=== PATIENT | female | born 1965 | race Caucasian/White ===

== ENCOUNTER 2017-05-26 11:26 | Inpatient (IN) ==
--- NOTE | 2017-05-26 11:38 | Emergency Department Note ---
Disposition Clinical Impression: Hypokalemia, Hyperglycemia due to type 1 diabetes mellitus, Dehydration Acute renal failure Qualifiers: Acute renal failure type: unspecified Qualified Code(s): N17.9 - Acute kidney failure, unspecified Disposition: Admitted As Inpatient Condition: Fair General Adult HPI - General Chief complaint: ED Dizziness Stated complaint: high blood sugar/dizzy Time Seen by Provider: 05/26/17 11:34 Source: patient Mode of arrival: private vehicle Limitations: no limitations Nursing Notes Reviewed: Yes Vital Signs Reviewed: Yes - History of Present Illness HPI Narrative: Patient relates she has been feeling weak and dizzy for about 2-3 days. She rates she is now to the point where she is falling and dropping things because of her diffuse weakness. During this time her blood sugars have been reading high and she has been on her routine diet and insulin. She has had similar episodes to this in the past she states the last time was one year ago and is because her "electrolytes were out of whack", she had decreased kidney function and her blood sugar was controlled. She does report that she has been having some nausea and vomiting for about 2 days and with a decreased oral intake. She has had a decrease in urination without burping. She denies abdominal pain or diarrhea. She denies chest pain, cough or abnormal shortness of breath. She relates she has normal dyspnea on exertion. She denies any change in medicines were cranial exposures. She has not had recent antibiotic, travel or food borne concerns. Onset (ago): day(s) (3) Pain Scale: 4 Consistency: Worsening Improves with: nothing Worsens with: other (Activity) Associated symptoms: Reports: loss of appetite, malaise, nausea/vomiting, weakness. Denies: confusion, chest pain, cough, diaphoresis, fever/chills, headaches, rash, seizure, shortness of breath, syncope - Related Data Home Medications Medication Instructions Recorded Confirmed FLUoxetine HCl [Prozac] 40 mg PO DAILY 03/19/15 05/26/17 Insulin ASPART [NovoLOG] 100 unit SQ TIDWM 03/19/15 05/26/17 Buprenorphine HCl/Naloxone HCl 0.5 film SL QID 04/11/16 05/26/17 [Suboxone 8 mg-2 mg Sl Film] Cholecalciferol (Vitd3)/Vit K2 [D3 2,000 unit PO DAILY 04/11/16 05/26/17 + K2 Dots 1,000 Units Tab] Fenofibrate Nanocrystallized 145 mg PO DAILY 04/11/16 05/26/17 [Tricor] Gabapentin [Neurontin] 1 cap PO BID 04/11/16 05/26/17 Insulin Degludec [Tresiba 100 unit SQ QPM 04/11/16 05/26/17 Flextouch U-100] Metoprolol [Lopressor] 25 mg PO BID 04/11/16 05/26/17 metFORMIN [Glucophage] 500 mg PO BIDWM 04/11/16 05/26/17 risperiDONE [Risperidone] 0.5 mg PO DAILY 04/11/16 05/26/17 Buspirone HCl [Buspar] 10 mg PO BID 06/22/16 05/26/17 Enalapril Maleate [Vasotec] 10 mg PO DAILY 06/22/16 05/26/17 Fexofenadine HCl [Allergy Relief] 180 mg PO DAILY 09/18/16 05/26/17 Potassium Chloride [Klor-Con] 20 meq PO DAILY 09/18/16 05/26/17 Previous Rx's Medication Instructions Recorded Allopurinol [Zyloprim] 300 mg PO DAILY #30 tablet 03/22/15 Atorvastatin [Lipitor] 40 mg PO HS #30 tablet 03/22/15 Ascorbic Acid [Vitamin C] 500 mg PO DAILY #30 tablet.er 04/14/16 Ferrous Sulfate [Iron] 325 mg PO DAILY #30 tablet 04/14/16 Cephalexin [Keflex] 500 mg PO QID #40 capsule 03/05/17 Allergies Allergy/AdvReac Type Severity Reaction Status Date / Time No Known Allergies Allergy Verified 03/19/15 08:48 All systems ED: reviewed and negative except as stated. Past Medical History - Past Medical History Attestation: Yes The following information was validated with the patient. Source: patient, old records reviewed, obtained from family, nursing notes reviewed Medical history: Reports: arthritis, diabetes, hyperlipidemia, hypertension, migraine, renal disease, other Surgical history: Reports: other Psychiatric history: Reports: anxiety, depression, panic disorder, schizophrenia PTA history: Reports: bilateral tubal ligation - Social History Smoking Status: Former smoker Smokeless Tobacco Status: No Alcohol use: Reports: none Drug use: Reports: none Physical Exam - General Limitations: no limitations General appearance: alert, in no apparent distress - Head Head exam: atraumatic, normocephalic, normal inspection - Eye Eye exam: Present: normal appearance, PERRL, EOMI. Absent: scleral icterus, conjunctival injection - ENT ENT exam: normal exam, normal oropharynx, mucous membranes moist - Neck Neck exam: Present: normal inspection, full ROM, trachea midline - Chest Chest inspection: Present: normal inspection, symmetric chest wall rise. Absent : tenderness - Respiratory Respiratory exam: Present: normal lung sounds bilaterally. Absent: respiratory distress, wheezes, prolonged expiratory phase - Cardiovascular Cardiovascular exam: Present: regular rate, normal rhythm, tachycardia, normal heart sounds - Abdominal Exam Abdominal exam: Present: soft, Non-Tender, normal bowel sounds. Absent: tenderness, distention, guarding, rebound, rigidity - Extremities Exam Extremities exam: Present: normal inspection, full ROM, normal capillary refill. Absent: tenderness, pedal edema, calf tenderness - Expanded Lower Extremity Exam Neurovascular/Tendon exam: Present: normal capillary refill. Absent: motor deficit, sensory deficit, tendon deficit Gait: observed and normal - Back Exam Back exam: Present: normal inspection, full ROM. Absent: tenderness, CVA tenderness (R), CVA tenderness (L) - Neurological Exam Neurological exam: Present: alert, oriented X3. Absent: motor sensory deficit - Psychiatric Psychiatric exam: Present: normal affect, normal mood - Skin Skin exam: Present: warm, dry, intact, normal color. Absent: diaphoresis, pallor Course Course Narrative: 1220: Care has been discussed with Dr. Fernando who is agreeable with her inpatient observation, hydration and potassium replacement.. Orders have been obtained for her admission. We are waiting a bed at this time Vital Signs Temperature 97.5 F L 05/26/17 11:28 Pulse Rate 125 05/26/17 11:28 Respiratory Rate 18 05/26/17 11:28 Blood Pressure 94/58 05/26/17 11:28 O2 Sat by Pulse Oximetry 96 05/26/17 11:28 Temperature 97.5 F L 05/26/17 11:28 Pulse Rate 106 05/26/17 12:16 Respiratory Rate 18 05/26/17 12:16 Blood Pressure 92/51 05/26/17 12:16 O2 Sat by Pulse Oximetry 98 05/26/17 12:16 Oxygen Delivery Oxygen Delivery Room Air Medical Decision Making - Medical Records Medical records reviewed: Yes I reviewed the patient's medical records. - Lab Data Lab results reviewed: Yes I reviewed the patient's lab results. Result diagrams: 05/26/17 11:45 05/26/17 11:45 Lab Results 05/26/17 05/26/17 05/26/17 Range/Units 11:45 11:45 11:45 WBC 14.6 H (4.3-11.1) K/mcL RBC 4.21 (3.82-4.97) M/mcL Hgb 12.3 (11.5-15.4) g/dL Hct 34.1 L (35.3-44.9) % MCV 81.0 L (83.0-100.0) fL MCH 29.2 (28.0-33.3) pg MCHC 36.1 H (31.6-35.5) g/dL RDW 12.8 (11.5-14.5) % Plt Count 279 (140-400) K/mcL MPV 10.4 (9.4-12.4) fL Immature Gran % 1.8 (0-4) % Seg Neutrophils % 67.1 % Lymphocytes % 23.4 % Monocytes % 5.1 % Eosinophils % 2.1 % Basophils % 0.5 % Neutrophils # 9.8 H (1.6-8.9) K/mcL Lymphocytes # 3.4 (0.6-4.6) K/mcL Monocytes # 0.7 (0.0-1.3) K/mcL Eosinophils # 0.3 (0.0-0.6) K/mcL Basophils # 0.1 (0.0-0.2) K/mcL Sodium 134 L (136-145) mEq/L Potassium 2.2 L* (3.5-4.5) mEq/L Chloride 90 L (98-109) mEq/L Carbon Dioxide 26 (19-29) mEq/L BUN 46 H (7-20) mg/dL Creatinine 4.84 H (0.57-1.11) mg/dL Est GFR ( Amer) 11 L (> 60) Est GFR (Non-Af Amer) 9 L (> 60) BUN/Creatinine Ratio 10 (6-26) Glucose 336 H (70-99) mg/dL Calculated Osmolality 303 H (280-300) Lactic Acid 2.4 H (0.5-2.2) mmol/L Calcium 10.4 (8.6-10.8) mg/dL Beta-Hydroxybutyric Acd 0.19 (0.02-0.27) mmol/L Critical Care Time Critical Care Time: Yes Total Critical Care Time: 45 Attestation: As this patient did present with signs and symptoms of potential life- threatening illness requiring my urgent intervention, total critical care time in this patient's care has been 45 minutes, not withstanding separately reportable procedures.
[2017-05-26] MEDS ORDERED: Ondansetron 4 MG/2 ML VIAL IVP ONE (11:39)
[2017-05-26] MEDS ORDERED: Insulin Regular, Human 100 UNIT/ML SQ ONE (11:39)
[2017-05-26] MEDS ORDERED: 0.9 % Sodium Chloride 1,000 ML IVC SCH ×3 (11:45→13:22)
[2017-05-26 11:56] LABS: Basophils # 0.1 K/mcL (0.0-0.2); Basophils % 0.5 %; Eosinophils # 0.3 K/mcL (0.0-0.6); Eosinophils % 2.1 %; Hematocrit 34.1 % (35.3-44.9); Hemoglobin 12.3 g/dL (11.5-15.4); Immature Granulocytes % 1.8 % (0-4); Lymphocytes # 3.4 K/mcL (0.6-4.6); Lymphocytes % 23.4 %; Mean Corpuscular HGB Conc 36.1 g/dL (31.6-35.5); Mean Corpuscular Hemoglobin 29.2 pg (28.0-33.3); Mean Platelet Volume 10.4 fL (9.4-12.4); Monocytes % 5.1 %; Neutrophils # 9.8 K/mcL (1.6-8.9); Platelet Count 279 K/mcL (140-400); Red Blood Count 4.21 M/mcL (3.82-4.97); Red Cell Distribution Width 12.8 % (11.5-14.5); Segmented Neutrophils % 67.1 %
[2017-05-26 11:57] LABS: Monocytes # 0.7 K/mcL (0.0-1.3)
[2017-05-26 12:11] LABS: Beta-Hydroxybutyric Acid 0.19 mmol/L (0.02-0.27); Calcium 10.4 mg/dL (8.6-10.8)
[2017-05-26 12:12] LABS: Potassium 2.2 mEq/L (3.5-4.5)
[2017-05-26 12:50] LABS: VBG HCO3 28 mEq/L (21-27); VBG PCO2 48 mmHg (41-51); VBG PH 7.37 pH Units (7.32-7.42); VBG PO2 54 mmHg (25-50)
[2017-05-26] MEDS ORDERED: Naloxone 0.4 MG/ML INJ IVP PRN (13:22)
[2017-05-26] MEDS ORDERED: D5% in Water 1,000 ML IVC PRN (13:22)
[2017-05-26] MEDS ORDERED: Dextrose Gel 15 GM PO PRN ×2 (13:22)
[2017-05-26] MEDS ORDERED: MOM Conc 10 ML UD.LIQ PO PRN (13:22)
[2017-05-26] MEDS ORDERED: Ondansetron 4 MG/2 ML VIAL IVP PRN (13:22)
[2017-05-26] MEDS ORDERED: *HR* Dextrose 50 % in Water (Syg) 50 ML SYRINGE IVP PRN (13:22)
[2017-05-26] MEDS: Insulin LISPRO 300 UNITS/3 ML VIAL SQ SCH ×2 (16:29→21:30)
[2017-05-26] MEDS ORDERED: Insulin LISPRO 300 UNITS/3 ML VIAL SQ SCH (17:00)
[2017-05-26] MEDS: Acetaminophen 325 MG TABLET PO PRN (17:59)
[2017-05-26] MEDS ORDERED: Insulin DETEMIR 100 UNIT/ML X5UNITS SQ SCH ×2 (18:00)
--- NOTE | 2017-05-26 20:11 | Internal Med History&Physical ---
Date of Encounter: 05/26/17 Time of Encounter: 19:45 Assessment and Plan (1) Hypokalemia Current visit: Yes Status: Acute Probably secondary to diuretic use and vomiting. She will be given IV fluids with supplemental potassium. Follow-up labs will be done in a.m. (2) Acute renal failure Current visit: Yes Status: Acute We will give IV fluids and recheck labs in a.m. Qualifiers: Acute renal failure type: unspecified Qualified Code(s): N17.9 - Acute kidney failure, unspecified Internal Medicine - H&P: HPI Chief complaint: Vomiting and weakness Admitted From: Emergency Dept Plans for Post Hospital Care: Home History of present illness: Ms. Peraza is a 52 year old female who came to emergency room stating she had onset of vomiting the evening of May 23. She denies hematemesis. She reports vomiting approximately 6 times. She had progressive weakness and noted she was having leg cramps. She was evaluated in emergency room and found to have acute renal failure and severe hypokalemia. She was admitted to Med[facility] floor for ongoing care needs. Past Med Surg Social Fam HX - Past Medical History Medical history: arthritis, diabetes, hyperlipidemia, hypertension, migraine, renal disease, other Psychiatric history: anxiety, depression, panic disorder, schizophrenia - Past Surgical History Surgical History: other - Social History Smoking Status: Former smoker Smokeless Tobacco Status: No Alcohol use: none Drug use: none - Family History Father Living Status: Hx Family Cancer: Yes Internal Medicine - H&P: Meds FLUoxetine HCl [Prozac] 40 mg PO DAILY 03/19/15 [History] Insulin ASPART [NovoLOG] 100 unit SQ TIDWM 03/19/15 [History] Allopurinol [Zyloprim] 300 mg PO DAILY #30 tablet 03/22/15 [Rx] Atorvastatin [Lipitor] 40 mg PO HS #30 tablet 03/22/15 [Rx] Buprenorphine HCl/Naloxone HCl [Suboxone 8 mg-2 mg Sl Film] 0.5 film SL QID [History] Cholecalciferol (Vitd3)/Vit K2 [D3 + K2 Dots 1,000 Units Tab] 2,000 unit PO DAILY 04/11/16 [History] Fenofibrate Nanocrystallized [Tricor] 145 mg PO DAILY 04/11/16 [History] Gabapentin [Neurontin] 1 cap PO BID 04/11/16 [History] Insulin Degludec [Tresiba Flextouch U-100] 100 unit SQ QPM 04/11/16 [History] Metoprolol [Lopressor] 25 mg PO BID 04/11/16 [History] metFORMIN [Glucophage] 500 mg PO BIDWM 04/11/16 [History] risperiDONE [Risperidone] 0.5 mg PO DAILY 04/11/16 [History] Ascorbic Acid [Vitamin C] 500 mg PO DAILY #30 tablet.er 04/14/16 [Rx] Ferrous Sulfate [Iron] 325 mg PO DAILY #30 tablet 04/14/16 [Rx] Buspirone HCl [Buspar] 10 mg PO BID 06/22/16 [History] Enalapril Maleate [Vasotec] 10 mg PO DAILY 06/22/16 [History] Fexofenadine HCl [Allergy Relief] 180 mg PO DAILY 09/18/16 [History] Potassium Chloride [Klor-Con] 20 meq PO DAILY 09/18/16 [History] Cephalexin [Keflex] 500 mg PO QID #40 capsule 03/05/17 [Rx] 3 Allergy/AdvReac Type Severity Reaction Status Date / Time No Known Allergies Allergy Verified 03/19/15 08:48 All Systems PM: A 10-system review of systems was performed and is negative for pertinent findings except as documented above in the HPI. Review of systems: Review of systems from her March 2016 [facility] hospitalization were reviewed and revised as below. Gen.: Her weight has decreased from 129.529 kg on 04/14/2016 to 108.862 kg at present. Cardiovascular: She has a history of hypertension but denies MA heart failure angina DVT or pulmonary embolus. Respiratory: She smoked cigarettes only rarely in the past. She has no known chronic lung disease. She does not use supplemental oxygen and has not been tested for sleep apnea. GI: She has had "gallbladder problems" in the past but has refused cholecystectomy. She denies disorders of her liver or exocrine pancreas. : She has occasional hematuria. She has had frequent urinary tract infections in the past. She has been told in the past she has chronic kidney disease. Her creatinine was 1.34 on 01/07/2017. She states she was restarted on hydrochlorothiazide and Lasix a few weeks ago. Neurologic: She has migraine headaches and has neuropathy possibly secondary to DM 2. She denies large distribution strokes or seizures Endocrine: She was diagnosed with DM 2 approximately 2009. She has hyperlipidemia but no known thyroid disease. Hematology/oncology: She had anemia on blood work in emergency room March 2016 admission. She has had no internal malignancies documented. Psychiatric: She has diagnoses of depression and schizophrenia but does not follow at the mental health clinic at the present time with her last visit approximately 2013. [place] skeletal: She has chronic low back pain but has refused back surgeries. She has a history of gout. - Constitutional Vitals: Temp Pulse Resp BP Pulse Ox 98.7 F 109 18 102/51 92 05/26/17 18:45 05/26/17 18:45 05/26/17 18:45 05/26/17 18:45 05/26/17 18:45 Exam: Gen.: She is a well developed well nourished female lying in bed who appears in no acute distress at present time HEENT: Head is atraumatic and normocephalic. Eyes: EOMI. There is no scleral icterus. Mouth: Mucosa is moist. Neck: Supple and nontender. There is no thyromegaly or adenopathy noted. Heart: Regular without murmurs gallops or ectopics Lungs: No wheezes or crackles are heard. Abdomen: Bowel sounds are diminished. Abdomen is nontender to palpation. No masses or guarding are noted. Extremities: There is no cyanosis edema or clubbing noted. Dorsalis pedis and posterior tibial pulses are trace palpable bilaterally. Neurologic: Mental status: She is talkative and a good historian. Cranial nerves: Smile is symmetric. Forehead wrinkles bilaterally. Tongue protrudes midline. EOMI. Motor: There is no pronator drift. Cerebellar: Finger to nose is intact bilaterally. Skin: Warm and dry Internal Med - H&P Results - Labs CBC & Chem 7: 05/26/17 11:45 05/26/17 11:45 - ABG Interpretation ABG results: 05/26/17 12:46 VBG pH 7.37 VBG pCO2 48 VBG pO2 54 H VBG HCO3 28 H
[2017-05-26] MEDS ORDERED: SUBOXONE PO SCH (21:00)
[2017-05-26] MEDS: Gabapentin 400 MG CAPSULE PO SCH (21:29)
[2017-05-26] MEDS: 0.45 % Sodium Chloride w/KCl 20 MEQ/1,000 ML MLS IVC SCH (21:30)
[2017-05-27] MEDS: Acetaminophen 325 MG TABLET PO PRN (02:45)
[2017-05-27] MEDS: 0.45 % Sodium Chloride w/KCl 20 MEQ/1,000 ML MLS IVC SCH ×2 (07:21→16:00)
[2017-05-27] MEDS: Fenofibrate 54 MG TABLET PO SCH (07:53)
[2017-05-27] MEDS: Gabapentin 400 MG CAPSULE PO SCH ×2 (07:53→21:48)
[2017-05-27] MEDS: risperiDONE 0.25 MG TABLET PO SCH (07:54)
[2017-05-27] MEDS: FLUoxetine 20 MG CAPSULE PO SCH (07:54)
[2017-05-27] MEDS: Insulin LISPRO 300 UNITS/3 ML VIAL SQ SCH ×4 (07:55→21:21)
[2017-05-27 10:27] LABS: Basophils # 0.1 K/mcL (0.0-0.2); Basophils % 0.6 %; Eosinophils # 0.3 K/mcL (0.0-0.6); Eosinophils % 3.4 %; Hematocrit 28.6 % (35.3-44.9); Hemoglobin 9.7 g/dL (11.5-15.4); Immature Granulocytes % 1.3 % (0-4); Lymphocytes # 2.1 K/mcL (0.6-4.6); Lymphocytes % 25.2 %; Mean Corpuscular HGB Conc 33.9 g/dL (31.6-35.5); Mean Corpuscular Hemoglobin 28.7 pg (28.0-33.3); Mean Corpuscular Volume 84.6 fL (83.0-100.0); Mean Platelet Volume 10.5 fL (9.4-12.4); Monocytes # 0.6 K/mcL (0.0-1.3); Monocytes % 7.6 %; Neutrophils # 5.2 K/mcL (1.6-8.9); Platelet Count 201 K/mcL (140-400); Red Blood Count 3.38 M/mcL (3.82-4.97); Red Cell Distribution Width 13.2 % (11.5-14.5); Segmented Neutrophils % 61.9 %
[2017-05-27 10:40] LABS: Calcium 8.4 mg/dL (8.6-10.8); Potassium 2.7 mEq/L (3.5-4.5)
[2017-05-27] MEDS ORDERED: Potassium Chloride 20 MEQ, Lidocaine 1% 2 ML in D5% in Water 250 ML IVPB ONE (14:36)
--- NOTE | 2017-05-27 14:39 | Internal Med Progress Note ---
Date of Encounter: 05/27/17 Time of Encounter: 14:25 - Assessment and plan (1) Hypokalemia Current Visit: Yes Status: Acute Assessment and plan: May 27. Improved to 2.7. We will give additional IV and oral potassium supplements and recheck labs in a.m. Anticipate discharge home tomorrow if stable. (2) Acute renal failure Current Visit: Yes Status: Acute Assessment and plan: May 27. Azotemia slightly improved. Continue IV fluids, remain off diuretics, and recheck labs in a.m. Qualifiers: Acute renal failure type: unspecified Qualified Code(s): N17.9 - Acute kidney failure, unspecified - Subjective Interval history: May 27. She has no new complaints and feels better and she has had no further vomiting - Constitutional Vitals: Temp Pulse Resp BP Pulse Ox 97.8 F 101 17 109/78 98 05/27/17 10:01 05/27/17 10:01 05/27/17 10:01 05/27/17 10:01 05/27/17 10:01 Exam: She is sitting in bed resting comfortably. Her affect is bright and cheerful. I reviewed her medications and lab results. Internal Medicine: Result - Labs CBC & Chem 7: 05/27/17 07:10 05/27/17 07:25 Labs: Short CBC 05/27/17 Range/Units 07:10 WBC 8.3 (4.3-11.1) K/mcL Hgb 9.7 L D (11.5-15.4) g/dL Hct 28.6 L (35.3-44.9) % Plt Count 201 (140-400) K/mcL Neutrophils # 5.2 (1.6-8.9) K/mcL BMP 05/27/17 07:25 Sodium 131 L Potassium 2.7 L Chloride 98 Carbon Dioxide 21 BUN 52 H Creatinine 3.55 H Glucose 510 H* Calcium 8.4 L D Consult Discharge Plan - Plan
[2017-05-27] MEDS ORDERED: Insulin DETEMIR 100 UNIT/ML X5UNITS SQ SCH (21:00)
[2017-05-28] MEDS: 0.45 % Sodium Chloride w/KCl 20 MEQ/1,000 ML MLS IVC SCH (03:11)
[2017-05-28 05:48] LABS: Basophils # 0.1 K/mcL (0.0-0.2); Basophils % 0.6 %; Eosinophils # 0.3 K/mcL (0.0-0.6); Eosinophils % 3.4 %; Hematocrit 29.1 % (35.3-44.9); Hemoglobin 9.8 g/dL (11.5-15.4); Immature Granulocytes % 1.8 % (0-4); Lymphocytes # 2.7 K/mcL (0.6-4.6); Mean Corpuscular HGB Conc 33.7 g/dL (31.6-35.5); Mean Corpuscular Hemoglobin 28.8 pg (28.0-33.3); Mean Corpuscular Volume 85.6 fL (83.0-100.0); Mean Platelet Volume 9.8 fL (9.4-12.4); Monocytes # 0.7 K/mcL (0.0-1.3); Neutrophils # 5.4 K/mcL (1.6-8.9); Platelet Count 204 K/mcL (140-400); Red Cell Distribution Width 12.9 % (11.5-14.5); Segmented Neutrophils % 58.2 %
[2017-05-28 06:58] LABS: Calcium 8.7 mg/dL (8.6-10.8); Potassium 3.4 mEq/L (3.5-4.5)
[2017-05-28] MEDS: Fenofibrate 54 MG TABLET PO SCH (08:55)
[2017-05-28] MEDS: FLUoxetine 20 MG CAPSULE PO SCH (08:56)
[2017-05-28] MEDS: risperiDONE 0.25 MG TABLET PO SCH (08:56)
[2017-05-28] MEDS: Insulin LISPRO 300 UNITS/3 ML VIAL SQ SCH (08:57)
[2017-05-28] MEDS: Gabapentin 400 MG CAPSULE PO SCH (09:05)
[2017-05-28 09:44] VITALS: BP 122/70
--- NOTE | 2017-05-28 09:50 | Discharge Summary ---
Date of Encounter: 05/28/17 Time of Encounter: 09:40 - Discharge Diagnosis (1) Hypokalemia Priority: Primary Status: Acute (2) Acute renal failure Priority: Secondary Status: Acute Qualifiers: Acute renal failure type: unspecified Qualified Code(s): N17.9 - Acute kidney failure, unspecified - Discharge Medications Home Medications: FLUoxetine HCl [Prozac] 40 mg PO DAILY 03/19/15 [History] Insulin ASPART [NovoLOG] 100 unit SQ TIDWM 03/19/15 [History] Allopurinol [Zyloprim] 300 mg PO DAILY #30 tablet 03/22/15 [Rx] Atorvastatin [Lipitor] 40 mg PO HS #30 tablet 03/22/15 [Rx] Buprenorphine HCl/Naloxone HCl [Suboxone 8 mg-2 mg Sl Film] 0.5 film SL QID [History] Cholecalciferol (Vitd3)/Vit K2 [D3 + K2 Dots 1,000 Units Tab] 2,000 unit PO DAILY 04/11/16 [History] Fenofibrate Nanocrystallized [Tricor] 145 mg PO DAILY 04/11/16 [History] Gabapentin [Neurontin] 1 cap PO BID 04/11/16 [History] Insulin Degludec [Tresiba Flextouch U-100] 100 unit SQ QPM 04/11/16 [History] Metoprolol [Lopressor] 25 mg PO BID 04/11/16 [History] metFORMIN [Glucophage] 500 mg PO BIDWM 04/11/16 [History] risperiDONE [Risperidone] 0.5 mg PO DAILY 04/11/16 [History] Ascorbic Acid [Vitamin C] 500 mg PO DAILY #30 tablet.er 04/14/16 [Rx] Ferrous Sulfate [Iron] 325 mg PO DAILY #30 tablet 04/14/16 [Rx] Buspirone HCl [Buspar] 10 mg PO BID 06/22/16 [History] Potassium Chloride [Klor-Con] 20 meq PO DAILY 09/18/16 [History] Fexofenadine HCl [Allergy Relief] 180 mg PO DAILY PRN #0 05/28/17 [Rx] Allergies/Adverse Reactions: 3 Allergy/AdvReac Type Severity Reaction Status Date / Time No Known Allergies Allergy Verified 03/19/15 08:48 Date of admission: 05/26/17 13:22 Primary care physician: Pablo Colmenares DO - Patient Status Disposition: Home, Self-Care Condition: Fair Functional capacity at discharge: independent ambulation Overall status at discharge: patient is progressing back to baseline - Discharge Instructions Follow Up With: Pablo Colmenares DO [Primary Care Provider] - 1 week Forms: ED Satisfaction Letter - Diet and Activity Activity: resume usual activities as tolerated Diet: advance to your usual diet Hospital course: Ms. Peraza is a 52 year old female who came to emergency room stating she had onset of vomiting the evening of May 23. She denies hematemesis. She reports vomiting approximately 6 times. She had progressive weakness and noted she was having leg cramps. She was evaluated in emergency room and found to have acute renal failure and severe hypokalemia. She was admitted to [facility] for ongoing care needs. Initial orders were written by the emergency room physician. I saw her on May 26 and performed the history and physical. She reported she was taking Lasix and hydrochlorothiazide but these are not her home medication list. Diuretics were discontinued and she was given IV fluids and supplemental potassium. Enalapril was held to lessen the risk of impairing renal function. She had clinical improvement with potassium rising to 3.4 and BUN and creatinine improving to 43 and 2.29 respectively by the day of discharge with a GFR rising to 22. She will remain off Lasix, lisinopril, and enalapril at discharge. She will continue potassium supplementation for now. Her blood pressure janine slightly by time of discharge. Her metoprolol dose will likely need to be adjusted by her PCP. Encouraged her to remain off Lasix and hydrochlorothiazide to avoid electrolyte imbalance and renal insufficiency worsening. On May 28 she felt stable for discharge home. She had no further vomiting after the first hospital day and felt safe for discharge. She will follow with her PCP Dr. Colmenares within 1 week. - Time Spent with Patient Total time spent providing and/or coordinating discharge services: - Constitutional Vitals: Temp Pulse Resp BP Pulse Ox 98.4 F 99 16 122/70 96 05/28/17 07:25 05/28/17 07:25 05/28/17 07:25 05/28/17 07:25 05/28/17 07:25
== END 2017-05-28 11:10 | disposition home or self-care (01) | DRG 469 ==
LOC: INPPIK 11:26 → EMEROOPIK 11:26 → INPPIK 13:07
PROVIDERS: ADMIT Internal Medicine; ATTEND Internal Medicine

== ENCOUNTER 2018-09-20 22:58 | Inpatient (IN) ==
--- NOTE | 2018-09-20 23:10 | Emergency Department Note ---
Disposition Condition: Good Forms: ED Satisfaction Letter, Work/School Release General Adult HPI - General Chief complaint: ED General Medical Stated complaint: High BS onset 3 weeks Time Seen by Provider: 09/20/18 23:00 Source: patient Mode of arrival: ambulatory Limitations: no limitations Nursing Notes Reviewed: Yes Vital Signs Reviewed: Yes - History of Present Illness HPI Narrative: 53-year-old female presents emergency room who has not been feeling well for the past couple weeks contacted her family physician cannot see her till September 30 she told them at that time her sugars are running high and they advised no changes at that time patient now tells me that she has appointment on the third ray performed for follow-up patient tells me that she has been weak tired has had no appetite she has not been taking any of her supplemental insulin she has only been taking her primary Lantus patient states that she has any at least 4 days she denies any blurred vision double vision loss sensation she has dark yellow urine shows any fever chills joint aches rash lesions cough cold of flulike symptoms numbness tingling weakness patient has been trying to do the right thing by getting into the family has been advised to follow up at a different time patient is somewhat frustrated Onset (ago): day(s) Location: other (Generalized) Radiation: non-radiation Pain Scale: 0 Consistency: constant Improves with: nothing Worsens with: nothing Associated symptoms: Reports: denies other symptoms Treatments Prior to Arrival: none - Related Data Home Medications Medication Instructions Recorded Confirmed FLUoxetine HCl [Prozac] 40 mg PO DAILY 03/19/15 09/21/18 Insulin ASPART [NovoLOG] 110 unit SQ TIDWM 03/19/15 09/21/18 Buprenorphine HCl/Naloxone HCl 1 film SL BID 04/11/16 09/21/18 [Suboxone 8 mg-2 mg Sl Film] Cholecalciferol (Vitd3)/Vit K2 [D3 2,000 unit PO DAILY 04/11/16 09/21/18 + K2 Dots 1,000 Units Tab] Fenofibrate Nanocrystallized 145 mg PO DAILY 04/11/16 09/21/18 [Tricor] Gabapentin [Neurontin] 600 mg PO TID 04/11/16 09/21/18 Metoprolol [Lopressor] 50 mg PO BID 04/11/16 09/21/18 metFORMIN [Glucophage] 500 mg PO BIDWM 04/11/16 09/21/18 risperiDONE [Risperidone] 0.5 mg PO DAILY 04/11/16 09/21/18 Buspirone HCl [Buspar] 10 mg PO BID 06/22/16 09/21/18 Potassium Chloride [Klor-Con] 20 meq PO BID 09/18/16 09/21/18 Adalimumab [Humira] 40 mg SQ Q2W 10/06/17 02/13/18 Enalapril Maleate [Vasotec] 10 mg PO DAILY 10/06/17 09/21/18 Furosemide [Lasix] 20 mg PO DAILY 10/06/17 09/21/18 Methocarbamol [Robaxin-750] 750 mg PO Q4H 10/06/17 09/21/18 Aspirin [Lo-Dose Aspirin EC] 81 mg PO DAILY 09/21/18 09/21/18 Etanercept [Enbrel] 1 ml SQ QWEEK 09/21/18 09/21/18 Insulin ASPART [NovoLOG] 65 unit SQ BID 09/21/18 09/21/18 Previous Rx's Medication Instructions Recorded Allopurinol [Zyloprim] 300 mg PO DAILY #30 tablet 03/22/15 Atorvastatin [Lipitor] 40 mg PO HS #30 tablet 03/22/15 Ferrous Sulfate [Iron] 325 mg PO DAILY #30 tablet 04/14/16 Fexofenadine HCl [Allergy Relief] 180 mg PO DAILY PRN #0 05/28/17 amLODIPine [Norvasc] 5 mg PO DAILY #30 tablet 10/06/17 Allergies Allergy/AdvReac Type Severity Reaction Status Date / Time amlodipine Allergy Hives Verified 09/21/18 00:54 All systems ED: reviewed and negative except as stated. Review of Systems: As Per HPI Constitutional: Reports: weakness. Denies: fever, chills Eyes: Denies: eye pain, eye discharge ENT ED: Denies: ear pain, throat pain Cardiovascular: Denies: chest pain, palpitations, dyspnea on exertion Respiratory: Denies: dyspnea, wheezes Gastrointestinal: Reports: nausea. Denies: abdominal pain, vomiting, diarrhea Genitourinary: Reports: urgency, frequency. Denies: dysuria Musculoskeletal: Denies: back pain, neck pain Integumentary: Denies: rash, abrasion Neurological: Reports: weakness. Denies: headache Psychiatric: Denies: anxiety, depression Endocrine: Reports: polydipsia, polyuria. Denies: fatigue, heat or cold intolerance Hematological/Lymphatic: Denies: easy bleeding Allergic/Immunologic: Denies: facial swelling Past Medical History - Past Medical History Attestation: Yes The following information was validated with the patient. Source: patient, old records reviewed, nursing notes reviewed Medical history: Reports: arthritis, diabetes, fibromyalgia, GERD, hyperlipidemia, hypertension, migraine, renal disease Surgical history: Reports: other Psychiatric history: Reports: anxiety, depression, panic disorder, schizophrenia NEPHROLOGIST history: Reports: bilateral tubal ligation - Social History Smoking Status: Former smoker Smokeless Tobacco Status: No Alcohol use: Reports: none Drug use: Reports: none Physical Exam - General Limitations: no limitations General appearance: alert, in no apparent distress - Head Head exam: atraumatic, normocephalic, normal inspection - Eye Eye exam: Present: normal appearance, PERRL, EOMI - ENT ENT exam: normal exam, normal oropharynx, TM's normal bilaterally, normal external ear exam, other - Neck Neck exam: Present: normal inspection, full ROM, trachea midline - Chest Chest inspection: Present: normal inspection, symmetric chest wall rise - Respiratory Respiratory exam: Present: normal lung sounds bilaterally - Cardiovascular Cardiovascular exam: Present: regular rate, normal rhythm, normal heart sounds - Abdominal Exam Abdominal exam: Present: soft, Non-Tender, normal bowel sounds. Absent: mass, pulsatile mass - Extremities Exam Extremities exam: Present: normal inspection, full ROM, normal capillary refill. Absent: tenderness, pedal edema, joint swelling, calf tenderness - Expanded Lower Extremity Exam 1 - Decubitus presentation on the foot which is brownish red in color but it is not red hot or indurated Gait: observed and normal - Back Exam Back exam: Present: normal inspection, full ROM. Absent: muscle spasm - Neurological Exam Neurological exam: Present: alert, oriented X3, CN II-XII intact, normal gait - Psychiatric Psychiatric exam: Present: normal affect, normal mood - Skin Skin exam: Present: warm, dry, intact, normal color Course Course Narrative: seen and evaluated examinations performed patient had laboratory data none the prolonged time until I received a notification that her glucose was over 900 when we are very been asked check and should said that the media was too high to read as result patient had an IV established she was given IV fluids a total of 2 L then run in the 125 ML's and given 10 units of IV insulin help facilitate start bringing her sugar down and given insulin initially we contacted the floor to give her IV hydration to help bring her sugar down and I was told that there was no beds available after further discussion and reevaluation of bed was available here patient did not be transferred to [facility] because is far from home as result with the bed being available here she was then transferred to [facility] I spoke with Dr. Fernando will have her on sliding scale at this time bringing her sugars down slowly and metho dically and close monitoring repeat labs are ordered patient was transferred to [facility] stable Vital Signs Temperature 97.9 F 09/20/18 23:00 Pulse Rate 86 09/20/18 23:00 Respiratory Rate 16 09/20/18 23:00 Blood Pressure 135/91 09/20/18 23:00 O2 Sat by Pulse Oximetry 96 09/20/18 23:00 Temperature 97.9 F 09/20/18 23:00 Pulse Rate 90 09/21/18 00:30 Respiratory Rate 18 09/21/18 00:30 Blood Pressure 152/94 09/21/18 00:30 O2 Sat by Pulse Oximetry 95 09/21/18 00:30 Oxygen Delivery Oxygen Delivery Room Air Medical Decision Making - Medical Records Medical records reviewed: Yes I reviewed the patient's medical records. - Lab Data Lab results reviewed: Yes I reviewed the patient's lab results. Result diagrams: 09/20/18 23:23 09/20/18 23:23 Lab Results 09/20/18 09/20/18 09/20/18 Range/Units 23:05 23:23 23:23 WBC 7.3 (4.3-11.1) K/mcL RBC 4.34 (3.82-4.97) M/mcL Hgb 12.4 (11.5-15.4) g/dL Hct 38.4 (35.3-44.9) % MCV 88.5 (83.0-100.0) fL MCH 28.6 (28.0-33.3) pg MCHC 32.3 (31.6-35.5) g/dL RDW 13.8 (11.5-14.5) % Plt Count 167 (140-400) K/mcL MPV 10.4 (9.4-12.4) fL Immature Gran % 0.5 (0-4) % Seg Neutrophils % 44.9 % Lymphocytes % 45.6 % Monocytes % 5.3 % Eosinophils % 3.0 % Basophils % 0.7 % Neutrophils # 3.3 (1.6-8.9) K/mcL Lymphocytes # 3.3 (0.6-4.6) K/mcL Monocytes # 0.4 (0.0-1.3) K/mcL Eosinophils # 0.2 (0.0-0.6) K/mcL Basophils # 0.1 (0.0-0.2) K/mcL PT 10.3 (9.4-12.1) Seconds INR 0.9 APTT 31.5 (26.0-36.0) Seconds VBG pH (7.32-7.42) pH Units VBG pCO2 (41-51) mmHg VBG pO2 (25-50) mmHg VBG HCO3 (21-27) mEq/L Sodium (136-145) mEq/L Potassium (3.5-5.1) mEq/L Chloride (98-107) mEq/L Carbon Dioxide (23-29) mEq/L BUN (6-20) mg/dL Creatinine (0.60-1.20) mg/dL Est GFR ( Amer) (> 60) Est GFR (Non-Af Amer) (> 60) BUN/Creatinine Ratio (6-26) Glucose (70-105) mg/dL Calculated Osmolality (280-300) Calcium (8.6-10.3) mg/dL Total Bilirubin (0.3-1.0) mg/dL AST (13-39) Units/L ALT (7-52) Units/L Alkaline Phosphatase (34-104) Units/L Serum Total Protein (6.4-8.9) g/dL Albumin (3.5-5.7) g/dL Globulin (2.4-3.5) g/dL Albumin/Globulin Ratio (1.1-2.2) Beta-Hydroxybutyric Acd (0.02-0.27) mmol/L Urine Color Yellow (Yellow) Urine Clarity Slightly Cloudy A (Clear) Urine pH 6.5 (5.0-8.0) pH Units Ur Specific [place] 1.015 (1.010-1.025) Urine Protein Negative (Neg-Trace) mg/dL Urine Glucose (UA) >=1000 H (Normal) mg/dL Urine Ketones Negative (Negative) mg/dL Urine Blood Trace-intact H (Negative) Urine Nitrite Negative (Negative) Urine Bilirubin Negative (Negative) Urine Urobilinogen Normal (Normal) mg/dL Ur Leukocyte Esterase Negative (Negative) Urine Microscopic RBC 0-3 (0-3) per hpf Urine Microscopic WBC 0-3 (0-3) per hpf Ur Squamous Epith Cells Moderate H (None-Few) per lpf Urine Bacteria Few (None-Few) per hpf 09/20/18 09/20/18 09/20/18 Range/Units 23:23 23:23 23:51 WBC (4.3-11.1) K/mcL RBC (3.82-4.97) M/mcL Hgb (11.5-15.4) g/dL Hct (35.3-44.9) % MCV (83.0-100.0) fL MCH (28.0-33.3) pg MCHC (31.6-35.5) g/dL RDW (11.5-14.5) % Plt Count (140-400) K/mcL MPV (9.4-12.4) fL Immature Gran % (0-4) % Seg Neutrophils % % Lymphocytes % % Monocytes % % Eosinophils % % Basophils % % Neutrophils # (1.6-8.9) K/mcL Lymphocytes # (0.6-4.6) K/mcL Monocytes # (0.0-1.3) K/mcL Eosinophils # (0.0-0.6) K/mcL Basophils # (0.0-0.2) K/mcL PT (9.4-12.1) Seconds INR APTT (26.0-36.0) Seconds VBG pH 7.32 (7.32-7.42) pH Units VBG pCO2 59 H (41-51) mmHg VBG pO2 59 H (25-50) mmHg VBG HCO3 30 H (21-27) mEq/L Sodium 123 L (136-145) mEq/L Potassium 3.8 (3.5-5.1) mEq/L Chloride 81 L (98-107) mEq/L Carbon Dioxide 28 (23-29) mEq/L BUN 41 H (6-20) mg/dL Creatinine 1.82 H (0.60-1.20) mg/dL Est GFR ( Amer) 35 L (> 60) Est GFR (Non-Af Amer) 29 L (> 60) BUN/Creatinine Ratio 23 (6-26) Glucose 965 H* (70-105) mg/dL Calculated Osmolality 314 H (280-300) Calcium 9.0 (8.6-10.3) mg/dL Total Bilirubin 0.6 (0.3-1.0) mg/dL AST 31 (13-39) Units/L ALT 23 (7-52) Units/L Alkaline Phosphatase 118 H (34-104) Units/L Serum Total Protein 7.5 (6.4-8.9) g/dL Albumin 4.1 (3.5-5.7) g/dL Globulin 3.4 (2.4-3.5) g/dL Albumin/Globulin Ratio 1.2 (1.1-2.2) Beta-Hydroxybutyric Acd 0.32 H (0.02-0.27) mmol/L Urine Color (Yellow) Urine Clarity (Clear) Urine pH (5.0-8.0) pH Units Ur Specific [place] (1.010-1.025) Urine Protein (Neg-Trace) mg/dL Urine Glucose (UA) (Normal) mg/dL Urine Ketones (Negative) mg/dL Urine Blood (Negative) Urine Nitrite (Negative) Urine Bilirubin (Negative) Urine Urobilinogen (Normal) mg/dL Ur Leukocyte Esterase (Negative) Urine Microscopic RBC (0-3) per hpf Urine Microscopic WBC (0-3) per hpf Ur Squamous Epith Cells (None-Few) per lpf Urine Bacteria (None-Few) per hpf - Radiology Data Radiology results reviewed: Yes I reviewed the patient's radiology results. Critical Care Time Critical Care Time: No
[2018-09-20 23:17] LABS: Bilirubin,Urine Negative (Negative); Blood,Urine Trace-intact (Negative); Color,Urine Yellow (Yellow); Glucose,Urine (UA) >=1000 mg/dL (Normal); Ketones,Urine Negative (Negative); Leukocyte Esterase,Urine Negative (Negative); Nitrite,Urine Negative (Negative); PH,Urine 6.5 pH Units (5.0-8.0); Protein,Urine Negative (Neg-Trace); Specific Gravity,Urine 1.015 (1.010-1.025); Urobilinogen,Urine Normal (Normal)
[2018-09-20 23:18] LABS: Clarity,Urine Slightly Cloudy (Clear)
[2018-09-20 23:30] LABS: Bacteria,Urine Few per hpf (None-Few); RBC,Urine 0-3 per hpf (0-3); Squamous Epithelial Cell,Urine Moderate per lpf (None-Few); WBC,Urine 0-3 per hpf (0-3)
[2018-09-20 23:43] LABS: Basophils # 0.1 K/mcL (0.0-0.2); Basophils % 0.7 %; Eosinophils # 0.2 K/mcL (0.0-0.6); Hematocrit 38.4 % (35.3-44.9); Hemoglobin 12.4 g/dL (11.5-15.4); Immature Granulocytes % 0.5 % (0-4); Lymphocytes # 3.3 K/mcL (0.6-4.6); Lymphocytes % 45.6 %; Mean Corpuscular HGB Conc 32.3 g/dL (31.6-35.5); Mean Corpuscular Hemoglobin 28.6 pg (28.0-33.3); Mean Corpuscular Volume 88.5 fL (83.0-100.0); Mean Platelet Volume 10.4 fL (9.4-12.4); Monocytes # 0.4 K/mcL (0.0-1.3); Monocytes % 5.3 %; Neutrophils # 3.3 K/mcL (1.6-8.9); Platelet Count 167 K/mcL (140-400); Red Blood Count 4.34 M/mcL (3.82-4.97); Red Cell Distribution Width 13.8 % (11.5-14.5); Segmented Neutrophils % 44.9 %
[2018-09-20] MEDS: 0.9 % Sodium Chloride 1,000 ML IVC SCH (23:46)
[2018-09-20 23:52] LABS: INR 0.9; Prothrombin Time 10.3 Seconds (9.4-12.1)
[2018-09-20 23:54] LABS: VBG HCO3 30 mEq/L (21-27); VBG PCO2 59 mmHg (41-51); VBG PH 7.32 pH Units (7.32-7.42); VBG PO2 59 mmHg (25-50)
[2018-09-20 23:54] LABS: Activated Partial Thrombo Time 31.5 Seconds (26.0-36.0)
[2018-09-21 00:16] LABS: Albumin 4.1 g/dL (3.5-5.7); Albumin/Globulin Ratio 1.2 (1.1-2.2); Bilirubin,Total 0.6 mg/dL (0.3-1.0); Globulin 3.4 g/dL (2.4-3.5); Potassium 3.8 mEq/L (3.5-5.1); Total Protein 7.5 g/dL (6.4-8.9)
[2018-09-21] MEDS ORDERED: Insulin Human Regular 10 UNIT in 0.9 % Sodium Chloride 10 ML IV ONE (00:16)
[2018-09-21] MEDS: 0.9 % Sodium Chloride 1,000 ML IVC SCH ×3 (01:33→02:07)
[2018-09-21] MEDS ORDERED: Loratadine 10 MG TABLET PO PRN (01:43)
[2018-09-21] MEDS ORDERED: *HR* Dextrose 50 % in Water (Vial) 50 ML VIAL IVP PRN ×2 (01:43→17:31)
[2018-09-21] MEDS ORDERED: Ondansetron 4 MG/2 ML VIAL IVP PRN (01:43)
[2018-09-21] MEDS ORDERED: Adalimumab [Humira] 40 MG SQ SCH (01:43)
[2018-09-21] MEDS ORDERED: Dextrose Gel 15 GM/37.5 ML TUBE PO PRN ×5 (01:43→18:07)
[2018-09-21] MEDS ORDERED: Naloxone 0.4 MG/ML INJ IVP PRN (01:43)
[2018-09-21] MEDS ORDERED: D5% in Water 1,000 ML IVC PRN ×3 (01:43→18:07)
[2018-09-21] MEDS ORDERED: 0.9 % Sodium Chloride 1,000 ML IVC SCH (01:43)
[2018-09-21] MEDS: Methocarbamol 500 MG TABLET PO SCH ×6 (02:23→21:24)
[2018-09-21] MEDS ORDERED: Insulin Human Regular 15 UNIT in 0.9 % Sodium Chloride 10 ML IV ONE (04:13)
[2018-09-21] MEDS ORDERED: Insulin Human Regular 100 UNIT in 0.9 % Sodium Chloride 100 ML IVC SCH (04:30)
[2018-09-21] MEDS: 0.45 % Sodium Chloride w/KCl 20 MEQ/1,000 ML MLS IVC SCH ×2 (04:48→14:51)
[2018-09-21] MEDS: Insulin LISPRO 300 UNITS/3 ML VIAL SQ SCH ×3 (06:01→18:27)
[2018-09-21 06:48] LABS: Calcium 8.9 mg/dL (8.6-10.3); Potassium 2.9 mEq/L (3.5-5.1)
[2018-09-21] MEDS ORDERED: *HR* Metformin 500 MG TABLET PO SCH (08:00)
[2018-09-21] MEDS ORDERED: ETANERCEPT SQ SCH (09:00)
[2018-09-21 09:30] LABS: Estimated Average Glucose 355 mg/dl
[2018-09-21] MEDS: Gabapentin 300 MG CAPSULE PO SCH ×3 (10:05→21:20)
[2018-09-21] MEDS: Lisinopril 20 MG TABLET PO SCH (10:05)
[2018-09-21] MEDS: Cholecalciferol (D-3) 1,000 UNIT TABLET PO SCH (10:05)
[2018-09-21] MEDS: risperiDONE 0.25 MG TABLET PO SCH (10:05)
[2018-09-21] MEDS: Fenofibrate 54 MG TABLET PO SCH (10:05)
[2018-09-21] MEDS: Furosemide 20 MG TABLET PO SCH (10:05)
[2018-09-21] MEDS: FLUoxetine 20 MG CAPSULE PO SCH (10:06)
[2018-09-21] MEDS: Aspirin Enteric Coated 81 MG Tablet PO SCH (10:06)
[2018-09-21] MEDS: amLODIPine 5 MG TABLET PO SCH (10:06)
--- NOTE | 2018-09-21 12:32 | Internal Med History&Physical ---
Date of Encounter: 09/21/18 Time of Encounter: 11:45 Assessment and Plan (1) Hyperglycemia Current visit: Yes Status: Acute She has been started on insulin drip. Lantus/Levemir will be continued and Accu-Cheks monitored. (2) DM type 2 (diabetes mellitus, type 2) Current visit: No Status: Chronic Hemoglobin A1c has returned elevated at 14.0%. Treatment for acute hyperglycemia as above. 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 (4) CKD (chronic kidney disease), stage III Current visit: No Status: Chronic Monitor renal indices. (5) Hypokalemia Current visit: No Status: Acute Potassium has decreased to 2.9 today. Increase supplemental potassium Internal Medicine - H&P: HPI Chief complaint: Hyperglycemia, walking instability Admitted From: Emergency Dept Plans for Post Hospital Care: Home History of present illness: Ms. Peraza is a 53 year old female who came to emergency room stating she had 2 week history of elevated blood sugars and instability on walking. She denies any falls but states she has felt constantly unstable. She denies any other focal neurologic deficits. The states her instability worsened earlier the day of admission so she came to emergency room. She was evaluated and found to have significant hyperglycemia with blood sugar 965 MG/DL. She was admitted to [facility] floor for ongoing care needs. She reports she has taken no NovoLog insulin for 2 weeks because of poor oral intake and "feeling bad". Her usual doses 110 units 3 times a day with meals all she states she frequently adjust the dose based on her food intake. She has continued using Lantus at a dose of 65 units twice a day. She was diagnosed with DM 2 approximately 2009. She has hyperlipidemia but no known thyroid disease. Past Med Surg Social Fam HX - Past Medical History Medical history: arthritis, diabetes, fibromyalgia, GERD, hyperlipidemia, hypertension, migraine, renal disease Additional medical history: OPIATE ABUSE Psychiatric history: anxiety, depression, panic disorder, schizophrenia - Past Surgical History Surgical History: other Additional surgical history: TUBAL LIGATION, NORMAL HEART CATH (10/2017) - Social History Smoking Status: Former smoker Smokeless Tobacco Status: No Alcohol use: none Drug use: none - Family History Father Living Status: Hx Family Cancer: Yes Internal Medicine - H&P: Meds FLUoxetine HCl [Prozac] 40 mg PO DAILY 03/19/15 [History] Insulin ASPART [NovoLOG] 110 unit SQ TIDWM 03/19/15 [History] Allopurinol [Zyloprim] 300 mg PO DAILY #30 tablet 03/22/15 [Rx] Atorvastatin [Lipitor] 40 mg PO HS #30 tablet 03/22/15 [Rx] Buprenorphine HCl/Naloxone HCl [Suboxone 8 mg-2 mg Sl Film] 1 film SL BID 04/11/16 [History] Cholecalciferol (Vitd3)/Vit K2 [D3 + K2 Dots 1,000 Units Tab] 2,000 unit PO DAILY 04/11/16 [History] Fenofibrate Nanocrystallized [Tricor] 145 mg PO DAILY 04/11/16 [History] Gabapentin [Neurontin] 600 mg PO TID 04/11/16 [History] Metoprolol [Lopressor] 50 mg PO BID 04/11/16 [History] metFORMIN [Glucophage] 500 mg PO BIDWM 04/11/16 [History] risperiDONE [Risperidone] 0.5 mg PO DAILY 04/11/16 [History] Ferrous Sulfate [Iron] 325 mg PO DAILY #30 tablet 04/14/16 [Rx] Buspirone HCl [Buspar] 10 mg PO BID 06/22/16 [History] Potassium Chloride [Klor-Con] 20 meq PO BID 09/18/16 [History] Fexofenadine HCl [Allergy Relief] 180 mg PO DAILY PRN #0 05/28/17 [Rx] Enalapril Maleate [Vasotec] 10 mg PO DAILY 10/06/17 [History] Furosemide [Lasix] 20 mg PO DAILY 10/06/17 [History] Methocarbamol [Robaxin-750] 750 mg PO Q4H 10/06/17 [History] amLODIPine [Norvasc] 5 mg PO DAILY #30 tablet 10/06/17 [Rx] Aspirin [Lo-Dose Aspirin EC] 81 mg PO DAILY 09/21/18 [History] Etanercept [Enbrel] 1 ml SQ QWEEK 09/21/18 [History] Insulin Glargine [Lantus] 65 unit SQ BID 09/21/18 [History] Allergy/AdvReac Type Severity Reaction Status Date / Time amlodipine Allergy Hives Verified 09/21/18 00:54 All Systems PM: A 10-system review of systems was performed and is negative for pertinent findings except as documented above in the HPI. Review of systems: Review of systems from her April 2017 [facility] hospitalization were reviewed and revised as below. Gen.: Her weight has decreased from 129.529 kg on 04/14/2016 to 108.862 kg at present. Cardiovascular: She has a history of hypertension but denies MT heart failure angina DVT or pulmonary embolus. Respiratory: She smoked cigarettes only rarely in the past. She has no known chronic lung disease. She does not use supplemental oxygen and has not been tested for sleep apnea. GI: She has had "gallbladder problems" in the past but has refused cholecystectomy. She denies disorders of her liver or exocrine pancreas. : She has occasional hematuria. She has had frequent urinary tract infections in the past. 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 Neurologic: She has migraine headaches and has neuropathy possibly secondary to DM 2. She denies large distribution strokes or seizures Endocrine: She was diagnosed with DM 2 approximately 2009. She has hyperlipidemia but no known thyroid disease. Hematology/oncology: She had anemia on blood work in emergency room March 2016 admission. She has had no internal malignancies documented. Psychiatric: She has diagnoses of depression and schizophrenia but does not follow at the mental health clinic at the present time with her last visit approximately 2013. [place] skeletal: She has chronic low back pain but has refused back surgeries. She has a history of gout. - Constitutional Vitals: Temp Pulse Resp BP Pulse Ox 98.6 F 88 18 122/81 95 09/21/18 10:37 09/21/18 10:37 09/21/18 10:37 09/21/18 10:37 09/21/18 10:37 Exam: Gen.: She is a well-developed overweight female sitting on the side of bed who appears in no acute distress. HEENT: Head is atraumatic and normocephalic. Eyes: EOMI. There is no scleral icterus. Mouth: Mucosa is moist. Neck: Supple and nontender. There is no thyromegaly or adenopathy noted. Heart: Regular without murmurs gallops or ectopics Lungs: No wheezes or crackles are heard. Abdomen: Soft and nontender. No masses or guarding are noted. Extremities: There is no cyanosis edema or clubbing noted. Dorsalis pedis and posterior tibial pulses are 1+ palpable bilaterally. Neurologic: Mental status: She is talkative and a good historian. Cranial nerves: Smile is symmetric. Forehead wrinkles bilaterally. Tongue protrudes midline. EOMI. Motor: There is no pronator drift. Cerebellar: Finger to nose is intact bilaterally. Skin: Warm and dry Internal Med - H&P Results - Labs CBC & Chem 7: 09/20/18 23:23 09/21/18 05:50 Labs: Short CBC 09/20/18 Range/Units 23:23 WBC 7.3 (4.3-11.1) K/mcL Hgb 12.4 (11.5-15.4) g/dL Hct 38.4 (35.3-44.9) % Plt Count 167 (140-400) K/mcL Neutrophils # 3.3 (1.6-8.9) K/mcL BMP 09/20/18 09/21/18 23:23 05:50 Sodium 123 L 130 L Potassium 3.8 2.9 L Chloride 81 L 88 L Carbon Dioxide 28 30 H BUN 41 H 39 H Creatinine 1.82 H 1.73 H Glucose 965 H* 579 H* Calcium 9.0 8.9 Liver Function 09/20/18 Range/Units 23:23 Total Bilirubin 0.6 (0.3-1.0) mg/dL AST 31 (13-39) Units/L ALT 23 (7-52) Units/L Alkaline Phosphatase 118 H (34-104) Units/L Albumin 4.1 (3.5-5.7) g/dL Urine 09/20/18 Range/Units 23:05 Urine Color Yellow (Yellow) Urine Clarity Slightly Cloudy A (Clear) Urine pH 6.5 (5.0-8.0) pH Units Ur Specific [place] 1.015 (1.010-1.025) Urine Protein Negative (Neg-Trace) mg/dL Urine Glucose (UA) >=1000 H (Normal) mg/dL - ABG Interpretation ABG results: 09/20/18 23:51 VBG pH 7.32 VBG pCO2 59 H VBG pO2 59 H VBG HCO3 30 H
[2018-09-21] MEDS: Insulin DETEMIR 100 UNIT/ML X5UNITS SQ SCH ×2 (14:23→21:21)
[2018-09-21 15:21] LABS: Magnesium 1.8 mg/dL (1.6-2.6); Phosphorous 3.1 mg/dL (2.7-4.5)
[2018-09-21] MEDS ORDERED: *HR* Dextrose 50 % in Water (Syg) 50 ML SYRINGE IVP PRN (18:07)
[2018-09-21] MEDS ORDERED: Insulin LISPRO 300 UNITS/3 ML VIAL SQ SCH (21:00)
[2018-09-21] MEDS ORDERED: Insulin DETEMIR 100 UNIT/ML per UNIT SQ ONE (21:30)
[2018-09-22] MEDS: Methocarbamol 500 MG TABLET PO SCH ×3 (01:38→10:17)
[2018-09-22] MEDS: 0.45 % Sodium Chloride w/KCl 20 MEQ/1,000 ML MLS IVC SCH (01:38)
[2018-09-22 05:27] LABS: Basophils % 0.4 %; Eosinophils # 0.3 K/mcL (0.0-0.6); Eosinophils % 3.5 %; Hematocrit 33.9 % (35.3-44.9); Hemoglobin 11.4 g/dL (11.5-15.4); Immature Granulocytes % 0.4 % (0-4); Lymphocytes # 3.7 K/mcL (0.6-4.6); Lymphocytes % 52.5 %; Mean Corpuscular HGB Conc 33.6 g/dL (31.6-35.5); Mean Corpuscular Hemoglobin 28.8 pg (28.0-33.3); Mean Corpuscular Volume 85.6 fL (83.0-100.0); Mean Platelet Volume 10.3 fL (9.4-12.4); Monocytes # 0.4 K/mcL (0.0-1.3); Monocytes % 5.1 %; Neutrophils # 2.7 K/mcL (1.6-8.9); Platelet Count 158 K/mcL (140-400); Red Blood Count 3.96 M/mcL (3.82-4.97); Red Cell Distribution Width 13.9 % (11.5-14.5); Segmented Neutrophils % 38.1 %
[2018-09-22] MEDS ORDERED: *HR* Enoxaparin 40 MG/0.4 ML SYRINGE SQ SCH (06:00)
[2018-09-22 06:02] LABS: Calcium 9.1 mg/dL (8.6-10.3)
[2018-09-22] MEDS: Insulin LISPRO 300 UNITS/3 ML VIAL SQ SCH (07:35)
--- NOTE | 2018-09-22 09:59 | Discharge Summary ---
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 Peraza is a 53 year old female who came to emergency room stating she had 2 week history of elevated blood sugars and instability on walking. She denies any falls but states she has felt constantly unstable. She denies any other focal neurologic deficits. She states her instability worsened earlier the day of admission so she came to emergency room. She was evaluated and found to have significant hyperglycemia with blood sugar 965 MG/DL. She was admitted to [facility] for ongoing care needs. Initial orders were written by the emergency room physician. I saw her on September 21 and performed a history and physical. Upon further questioning she stated she had taken very little NovoLog in the preceding days. She was restarted on Lantus/Levemir at a dose of 35 units twice a day. Insulin drip was also used initially to lower blood sugars. On September 22 she stated she felt significantly improved and wished to be discharged home. I offered her staying another day in the hospital but she states she wished to go home and adjust insulin there. Head CT was done to further evaluate her complaints of instability on walking. No acute pathology was seen. MRI of head was then done to further evaluate cerebellum area and showed no significant pathology. Her PCP can monitor and do further workup/treatment/referral as needed. She will follow with her PCP Dr. Colmenares within 1 week. - Time Spent with Patient Total time spent providing and/or coordinating discharge services: - Discharge Medications Prescriptions: Continue Potassium Chloride [Klor-Con] 20 meq PO BID Methocarbamol [Robaxin-750] 750 mg PO Q4H Furosemide [Lasix] 20 mg PO DAILY Enalapril Maleate [Vasotec] 10 mg PO DAILY amLODIPine [Norvasc] 5 mg PO DAILY #30 tablet Insulin ASPART [NovoLOG] 110 unit SQ TIDWM FLUoxetine HCl [Prozac] 40 mg PO DAILY Atorvastatin [Lipitor] 40 mg PO HS #30 tablet Allopurinol [Zyloprim] 300 mg PO DAILY #30 tablet Fenofibrate Nanocrystallized [Tricor] 145 mg PO DAILY Cholecalciferol (Vitd3)/Vit K2 [D3 + K2 Dots 1,000 Units Tab] 2,000 unit PO DAILY Metoprolol [Lopressor] 50 mg PO BID metFORMIN [Glucophage] 500 mg PO BIDWM risperiDONE [Risperidone] 0.5 mg PO DAILY Gabapentin [Neurontin] 600 mg PO TID Buprenorphine HCl/Naloxone HCl [Suboxone 8 mg-2 mg Sl Film] 1 film SL BID Ferrous Sulfate [Iron] 325 mg PO DAILY #30 tablet Buspirone HCl [Buspar] 10 mg PO BID Fexofenadine HCl [Allergy Relief] 180 mg PO DAILY PRN #0 PRN Reason: Allergy Symptoms Aspirin [Lo-Dose Aspirin EC] 81 mg PO DAILY Etanercept [Enbrel Sureclick] 1 ml SQ QWEEK Insulin Glargine [Lantus] 65 unit SQ BID Home Medications: FLUoxetine HCl [Prozac] 40 mg PO DAILY 03/19/15 [History] Insulin ASPART [NovoLOG] 110 unit SQ TIDWM 03/19/15 [History] Allopurinol [Zyloprim] 300 mg PO DAILY #30 tablet 03/22/15 [Rx] Atorvastatin [Lipitor] 40 mg PO HS #30 tablet 03/22/15 [Rx] Buprenorphine HCl/Naloxone HCl [Suboxone 8 mg-2 mg Sl Film] 1 film SL BID 04/11/16 [History] Cholecalciferol (Vitd3)/Vit K2 [D3 + K2 Dots 1,000 Units Tab] 2,000 unit PO DAILY 04/11/16 [History] Fenofibrate Nanocrystallized [Tricor] 145 mg PO DAILY 04/11/16 [History] Gabapentin [Neurontin] 600 mg PO TID 04/11/16 [History] Metoprolol [Lopressor] 50 mg PO BID 04/11/16 [History] metFORMIN [Glucophage] 500 mg PO BIDWM 04/11/16 [History] risperiDONE [Risperidone] 0.5 mg PO DAILY 04/11/16 [History] Ferrous Sulfate [Iron] 325 mg PO DAILY #30 tablet 04/14/16 [Rx] Buspirone HCl [Buspar] 10 mg PO BID 06/22/16 [History] Potassium Chloride [Klor-Con] 20 meq PO BID 09/18/16 [History] Fexofenadine HCl [Allergy Relief] 180 mg PO DAILY PRN #0 05/28/17 [Rx] Enalapril Maleate [Vasotec] 10 mg PO DAILY 10/06/17 [History] Furosemide [Lasix] 20 mg PO DAILY 10/06/17 [History] Methocarbamol [Robaxin-750] 750 mg PO Q4H 10/06/17 [History] amLODIPine [Norvasc] 5 mg PO DAILY #30 tablet 10/06/17 [Rx] Aspirin [Lo-Dose Aspirin EC] 81 mg PO DAILY 09/21/18 [History] Etanercept [Enbrel Sureclick] 1 ml SQ QWEEK 09/21/18 [History] Insulin Glargine [Lantus] 65 unit SQ BID 09/21/18 [History] Allergies/Adverse Reactions: Allergy/AdvReac Type Severity Reaction Status Date / Time amlodipine Allergy Hives Verified 09/21/18 00:54 Date of admission: 09/21/18 18:51 Primary care physician: Pablo Colmenares DO - Constitutional Vitals: Temp Pulse Resp BP Pulse Ox 97.9 F 89 18 112/80 92 09/22/18 06:56 09/22/18 06:56 09/22/18 06:56 09/22/18 06:56 09/22/18 06:56 - Patient Status Disposition: Home, Self-Care Condition: Good - Discharge Instructions Follow Up With: Pablo Colmenares DO [Primary Care Provider] - 1 week - Diet and Activity Activity: resume usual activities as tolerated
[2018-09-22] MEDS: Aspirin Enteric Coated 81 MG Tablet PO SCH (10:16)
[2018-09-22] MEDS: Insulin DETEMIR 100 UNIT/ML X5UNITS SQ SCH (10:16)
[2018-09-22] MEDS: Gabapentin 300 MG CAPSULE PO SCH (10:17)
[2018-09-22] MEDS: Cholecalciferol (D-3) 1,000 UNIT TABLET PO SCH (10:17)
[2018-09-22] MEDS: Fenofibrate 54 MG TABLET PO SCH (10:18)
[2018-09-22] MEDS: FLUoxetine 20 MG CAPSULE PO SCH (10:18)
[2018-09-22] MEDS: risperiDONE 0.25 MG TABLET PO SCH (10:19)
[2018-09-22] MEDS: Furosemide 20 MG TABLET PO SCH (10:19)
[2018-09-22] MEDS ORDERED: Insulin Human Regular 20 UNIT in 0.9 % Sodium Chloride 10 ML IV ONE (10:23)
[2018-09-22 11:29] VITALS: BP 141/96
[2018-09-22] MEDS: Lisinopril 20 MG TABLET PO SCH (11:29)
[2018-09-22] MEDS: amLODIPine 5 MG TABLET PO SCH (11:30)
== END 2018-09-22 12:28 | disposition home or self-care (01) | DRG 420 ==
LOC: EMEROOPIK 22:58 → INPPIK 22:58
PROVIDERS: ADMIT Internal Medicine; ATTEND Internal Medicine

== ENCOUNTER 2018-11-27 14:33 | Inpatient (IN) ==
--- NOTE | 2018-11-27 14:46 | Emergency Department Note ---
Disposition Clinical Impression: Acute kidney injury Disposition: Admitted As Inpatient Condition: Fair Time of Disposition: 16:00 General Adult HPI - General Chief complaint: ED General Medical Stated complaint: UTI/possible low potassium Time Seen by Provider: 11/27/18 14:48 Source: patient, family Mode of arrival: private vehicle Limitations: no limitations Nursing Notes Reviewed: Yes Vital Signs Reviewed: Yes - History of Present Illness HPI Narrative: Patient presents saying she is been feeling poorly for about a week. She states she "don't feel good". She states she is having frequent urination with dribbling and dysuria. She denies any blood in the urine. She has had d iscomfort the mid low back but not in the flanks. She denies other abdominal pains. She has had chills without definite fever. She denies cough but occasionally has some slight shortness of breath for 2-3 weeks. She reports some nausea without vomiting. She denies any ill exposures, dietary illness concerns, recent antibiotics or travel. She has developed since yesterday evening some diarrhea without bloody or black stool. She also has been having some generalized fatigue and some occasional twitching. She states that she has had similar before when her potassium has been low. She related she also got concerned for possible stroke because of this twitching. She has not been having headache, visual changes nor any extremity localizing numbness, tingling or weakness. Has not had loss of any function to suggest a strokelike syndrome. Onset (ago): week(s) (1) Location: back, abdomen (Lower abdomen) Radiation: back Pain Severity: mild, moderate Quality: burning, aching Consistency: constant Improves with: nothing Worsens with: other (Urination) Associated symptoms: Reports: confusion, cough, loss of appetite, malaise, nausea/vomiting, shortness of breath, weakness. Denies: chest pain, diaphoresis, fever/chills, headaches, rash, seizure, syncope Treatments Prior to Arrival: none - Related Data Home Medications Medication Instructions Recorded Confirmed FLUoxetine HCl [Prozac] 40 mg PO DAILY 03/19/15 11/27/18 Insulin ASPART [NovoLOG] 110 unit SQ TIDWM 03/19/15 11/27/18 Buprenorphine HCl/Naloxone HCl 1 film SL BID 04/11/16 11/27/18 [Suboxone 8 mg-2 mg Sl Film] Cholecalciferol (Vitd3)/Vit K2 [D3 2,000 unit PO DAILY 04/11/16 11/27/18 + K2 Dots 1,000 Units Tab] Fenofibrate Nanocrystallized 145 mg PO DAILY 04/11/16 11/27/18 [Tricor] Gabapentin [Neurontin] 600 mg PO TID 04/11/16 11/27/18 Metoprolol [Lopressor] 50 mg PO BID 04/11/16 11/27/18 metFORMIN [Glucophage] 500 mg PO BIDWM 04/11/16 11/27/18 risperiDONE [Risperidone] 0.5 mg PO DAILY 04/11/16 11/27/18 Buspirone HCl [Buspar] 10 mg PO BID 06/22/16 11/27/18 Potassium Chloride [Klor-Con] 20 meq PO BID 09/18/16 11/27/18 Enalapril Maleate [Vasotec] 10 mg PO DAILY 10/06/17 11/27/18 Furosemide [Lasix] 20 mg PO DAILY 10/06/17 11/27/18 Methocarbamol [Robaxin-750] 750 mg PO Q4H 10/06/17 11/27/18 Aspirin [Lo-Dose Aspirin EC] 81 mg PO DAILY 09/21/18 11/27/18 Etanercept [Enbrel Sureclick] 1 ml SQ QWEEK 09/21/18 11/27/18 Insulin Glargine [Lantus] 65 unit SQ BID 09/21/18 11/27/18 Previous Rx's Medication Instructions Recorded Allopurinol [Zyloprim] 300 mg PO DAILY #30 tablet 03/22/15 Atorvastatin [Lipitor] 40 mg PO HS #30 tablet 03/22/15 Ferrous Sulfate [Iron] 325 mg PO DAILY #30 tablet 04/14/16 Fexofenadine HCl [Allergy Relief] 180 mg PO DAILY PRN #0 05/28/17 amLODIPine [Norvasc] 5 mg PO DAILY #30 tablet 10/06/17 Allergies Allergy/AdvReac Type Severity Reaction Status Date / Time amlodipine Allergy Hives Verified 09/21/18 00:54 All systems ED: reviewed and negative except as stated. Past Medical History - Past Medical History Attestation: Yes The following information was validated with the patient. 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 Absent: scleral icterus, nystagmus, miosis, mydriasis - ENT ENT exam: normal exam, normal oropharynx, mucous membranes moist - Neck Neck exam: Present: normal inspection, full ROM, trachea midline - Chest Chest inspection: Present: normal inspection, symmetric chest wall rise. Absent: tenderness - Respiratory Respiratory exam: Present: normal lung sounds bilaterally. Absent: respiratory distress, wheezes, prolonged expiratory phase - Cardiovascular Cardiovascular exam: Present: regular rate, normal rhythm, normal heart sounds - Abdominal Exam Abdominal exam: Present: soft, Non-Tender, normal bowel sounds. Absent: tenderness, distention, guarding, rebound, rigidity, Carlson's sign, tenderness at McBurney's Point - Extremities Exam Extremities exam: Present: normal inspection, full ROM, normal capillary refill. Absent: tenderness, pedal edema - Expanded Lower Extremity Exam Neurovascular/Tendon exam: Present: normal capillary refill. Absent: motor deficit, sensory deficit, tendon deficit Gait: observed and normal - Back Exam Back exam: Present: normal inspection, full ROM. Absent: tenderness, CVA tenderness (R), CVA tenderness (L), vertebral tenderness - Neurological Exam Neurological exam: Present: alert, oriented X3 - Psychiatric Psychiatric exam: Present: normal affect, normal mood. Absent: agitated, anxious - Skin Skin exam: Present: warm, dry, intact, normal color. Absent: diaphoresis, pallor Course Course Narrative: 1545: Patient has acute kidney injury on chronic renal insufficiency. She will need IV hydration. Her urine is equivocal for infection and I will discuss antibiotic coverage with Dr. Fernando. A page has been placed to discuss her obs ervation. 1554: Care has been discussed with Dr. Fernando. He would like the patient receive a single dose of Rocephin and continue IV fluids. He we will coordinate further care on the inpatient floor. Verbal orders have been obtained. Vital Signs Temperature 97.5 F L 11/27/18 14:35 Pulse Rate 101 11/27/18 14:35 Respiratory Rate 20 11/27/18 14:35 Blood Pressure 107/70 11/27/18 14:35 O2 Sat by Pulse Oximetry 92 11/27/18 14:35 Temperature 97.5 F L 11/27/18 16:37 Pulse Rate 95 11/27/18 16:37 Respiratory Rate 20 11/27/18 16:37 Blood Pressure 98/61 11/27/18 16:37 O2 Sat by Pulse Oximetry 96 11/27/18 16:37 Oxygen Delivery Oxygen Delivery Room Air Medical Decision Making - Medical Records Medical records reviewed: Yes I reviewed the patient's medical records. - Lab Data Lab results reviewed: Yes I reviewed the patient's lab results. Result diagrams: 11/27/18 15:03 11/27/18 15:03 Lab Results 11/27/18 11/27/18 11/27/18 Range/Units 14:54 15:03 15:03 WBC 12.4 H (4.3-11.1) K/mcL RBC 4.12 (3.82-4.97) M/mcL Hgb 12.2 (11.5-15.4) g/dL Hct 35.7 (35.3-44.9) % MCV 86.7 (83.0-100.0) fL MCH 29.6 (28.0-33.3) pg MCHC 34.2 (31.6-35.5) g/dL RDW 13.2 (11.5-14.5) % Plt Count 194 (140-400) K/mcL MPV 9.9 (9.4-12.4) fL Immature Gran % 0.6 (0-4) % Seg Neutrophils % 62.6 % Lymphocytes % 29.2 % Monocytes % 5.0 % Eosinophils % 2.0 % Basophils % 0.6 % Neutrophils # 7.8 (1.6-8.9) K/mcL Lymphocytes # 3.6 (0.6-4.6) K/mcL Monocytes # 0.6 (0.0-1.3) K/mcL Eosinophils # 0.3 (0.0-0.6) K/mcL Basophils # 0.1 (0.0-0.2) K/mcL Sodium 136 (136-145) mEq/L Potassium 3.6 (3.5-5.1) mEq/L Chloride 97 L (98-107) mEq/L Carbon Dioxide 26 (23-29) mEq/L BUN 71 H (6-20) mg/dL Creatinine 4.67 H (0.60-1.20) mg/dL Est GFR ( Amer) 12 L (> 60) Est GFR (Non-Af Amer) 10 L (> 60) BUN/Creatinine Ratio 15 (6-26) Glucose 206 H (70-105) mg/dL Calculated Osmolality 309 H (280-300) Calcium 9.2 (8.6-10.3) mg/dL Magnesium (1.6-2.6) mg/dL Urine Color Yellow (Yellow) Urine Clarity Cloudy A (Clear) Urine pH 5.5 (5.0-8.0) pH Units Ur Specific [place] 1.020 (1.010-1.025) Urine Protein 30 H (Neg-Trace) mg/dL Urine Glucose (UA) Normal (Normal) mg/dL Urine Ketones Trace H (Negative) mg/dL Urine Blood Trace-lysed H (Negative) Urine Nitrite Negative (Negative) Urine Bilirubin Small H (Negative) Urine Urobilinogen Normal (Normal) mg/dL Ur Leukocyte Esterase Small H (Negative) Urine Microscopic RBC 0-3 (0-3) per hpf Urine Microscopic WBC 3-5 H (0-3) per hpf Ur Squamous Epith Cells Many H (None-Few) per lpf Urine Bacteria Moderate H (None-Few) per hpf Granular Casts Few H (None Seen) per lpf Urine Mucus Few (Few) Ur Culture Indicated? YES A (NO) 11/27/18 Range/Units 15:03 WBC (4.3-11.1) K/mcL RBC (3.82-4.97) M/mcL Hgb (11.5-15.4) g/dL Hct (35.3-44.9) % MCV (83.0-100.0) fL MCH (28.0-33.3) pg MCHC (31.6-35.5) g/dL RDW (11.5-14.5) % Plt Count (140-400) K/mcL MPV (9.4-12.4) fL Immature Gran % (0-4) % Seg Neutrophils % % Lymphocytes % % Monocytes % % Eosinophils % % Basophils % % Neutrophils # (1.6-8.9) K/mcL Lymphocytes # (0.6-4.6) K/mcL Monocytes # (0.0-1.3) K/mcL Eosinophils # (0.0-0.6) K/mcL Basophils # (0.0-0.2) K/mcL Sodium (136-145) mEq/L Potassium (3.5-5.1) mEq/L Chloride (98-107) mEq/L Carbon Dioxide (23-29) mEq/L BUN (6-20) mg/dL Creatinine (0.60-1.20) mg/dL Est GFR ( Amer) (> 60) Est GFR (Non-Af Amer) (> 60) BUN/Creatinine Ratio (6-26) Glucose (70-105) mg/dL Calculated Osmolality (280-300) Calcium (8.6-10.3) mg/dL Magnesium 2.1 (1.6-2.6) mg/dL Urine Color (Yellow) Urine Clarity (Clear) Urine pH (5.0-8.0) pH Units Ur Specific [place] (1.010-1.025) Urine Protein (Neg-Trace) mg/dL Urine Glucose (UA) (Normal) mg/dL Urine Ketones (Negative) mg/dL Urine Blood (Negative) Urine Nitrite (Negative) Urine Bilirubin (Negative) Urine Urobilinogen (Normal) mg/dL Ur Leukocyte Esterase (Negative) Urine Microscopic RBC (0-3) per hpf Urine Microscopic WBC (0-3) per hpf Ur Squamous Epith Cells (None-Few) per lpf Urine Bacteria (None-Few) per hpf Granular Casts (None Seen) per lpf Urine Mucus (Few) Ur Culture Indicated? (NO)
[2018-11-27 15:07] LABS: Bilirubin,Urine Small (Negative); Blood,Urine Trace-lysed (Negative); Clarity,Urine Cloudy (Clear); Color,Urine Yellow (Yellow); Glucose,Urine (UA) Normal (Normal); Ketones,Urine Trace mg/dL (Negative); Leukocyte Esterase,Urine Small (Negative); Nitrite,Urine Negative (Negative); PH,Urine 5.5 pH Units (5.0-8.0); Protein,Urine 30 mg/dL (Neg-Trace); Urobilinogen,Urine Normal (Normal)
[2018-11-27 15:12] LABS: Basophils # 0.1 K/mcL (0.0-0.2); Basophils % 0.6 %; Eosinophils # 0.3 K/mcL (0.0-0.6); Hematocrit 35.7 % (35.3-44.9); Hemoglobin 12.2 g/dL (11.5-15.4); Immature Granulocytes % 0.6 % (0-4); Lymphocytes # 3.6 K/mcL (0.6-4.6); Lymphocytes % 29.2 %; Mean Corpuscular HGB Conc 34.2 g/dL (31.6-35.5); Mean Corpuscular Hemoglobin 29.6 pg (28.0-33.3); Mean Corpuscular Volume 86.7 fL (83.0-100.0); Mean Platelet Volume 9.9 fL (9.4-12.4); Monocytes # 0.6 K/mcL (0.0-1.3); Platelet Count 194 K/mcL (140-400); Red Blood Count 4.12 M/mcL (3.82-4.97); Red Cell Distribution Width 13.2 % (11.5-14.5); Segmented Neutrophils % 62.6 %; White Blood Count 12.4 K/mcL (4.3-11.1)
[2018-11-27 15:19] LABS: Neutrophils # 7.8 K/mcL (1.6-8.9)
[2018-11-27 15:21] LABS: Bacteria,Urine Moderate per hpf (None-Few); Granular Casts,Urine Few per lpf (None Seen); Mucus,Urine Few (Few); RBC,Urine 0-3 per hpf (0-3); Squamous Epithelial Cell,Urine Many per lpf (None-Few)
[2018-11-27 15:31] LABS: Calcium 9.2 mg/dL (8.6-10.3); Potassium 3.6 mEq/L (3.5-5.1)
[2018-11-27] MEDS ORDERED: 0.9 % Sodium Chloride 1,000 ML IVC ONE (15:45)
[2018-11-27] MEDS ORDERED: 0.9 % Sodium Chloride 1,000 ML IVC SCH (15:45)
[2018-11-27] MEDS ORDERED: cefTRIAXone 2,000 MG in 0.9 % Sodium Chloride Mini Bag 100 ML IVPB ONE (15:53)
[2018-11-27] MEDS ORDERED: *HR* Dextrose 50 % in Water (Syg) 50 ML SYRINGE IVP PRN (16:16)
[2018-11-27] MEDS ORDERED: Dextrose Gel 15 GM/37.5 ML TUBE PO PRN ×4 (16:16→16:34)
[2018-11-27] MEDS ORDERED: D5% in Water 1,000 ML IVC PRN ×2 (16:16→16:34)
[2018-11-27] MEDS ORDERED: Insulin LISPRO 300 UNITS/3 ML VIAL SQ SCH ×2 (16:30→17:00)
[2018-11-27] MEDS ORDERED: *HR* Dextrose 50 % in Water (Vial) 50 ML VIAL IVP PRN (16:34)
[2018-11-27] MEDS ORDERED: Ondansetron ODT 4 MG TAB.RAPDIS SL PRN (16:34)
[2018-11-27] MEDS ORDERED: MOM Conc 10 ML UD.LIQ PO PRN (16:34)
[2018-11-27] MEDS ORDERED: Loratadine 10 MG TABLET PO PRN (16:34)
[2018-11-27] MEDS ORDERED: Mag Hydrox/Al Hydrox/Simeth 30 ML UDC PO PRN (16:34)
[2018-11-27] MEDS ORDERED: Naloxone 0.4 MG/ML INJ IVP PRN (16:34)
[2018-11-27] MEDS: Methocarbamol 500 MG TABLET PO SCH ×2 (18:28→20:43)
[2018-11-27] MEDS ORDERED: Acetaminophen 325 MG TABLET PO PRN (18:48)
[2018-11-27] MEDS: 0.9 % Sodium Chloride 1,000 ML IVC SCH (19:51)
[2018-11-27] MEDS ORDERED: Insulin DETEMIR 100 UNIT/ML per UNIT SQ ONE (20:07)
[2018-11-27] MEDS: Gabapentin 300 MG CAPSULE PO SCH (20:38)
[2018-11-27] MEDS: SUBOXONE 8MG/2MG SL SCH (21:01)
[2018-11-27] MEDS ORDERED: levoFLOXacin 750 MG/150 ML 750 MG/150 ML BAG IVPB ONE (21:34)
[2018-11-28] MEDS: Methocarbamol 500 MG TABLET PO SCH ×6 (00:35→20:52)
[2018-11-28] MEDS: 0.9 % Sodium Chloride 1,000 ML IVC SCH ×2 (04:55→14:46)
[2018-11-28 06:45] LABS: Calcium 8.1 mg/dL (8.6-10.3); Potassium 3.9 mEq/L (3.5-5.1)
[2018-11-28] MEDS: Aspirin Enteric Coated 81 MG Tablet PO SCH (08:53)
[2018-11-28] MEDS: FLUoxetine 20 MG CAPSULE PO SCH (08:53)
[2018-11-28] MEDS: Gabapentin 300 MG CAPSULE PO SCH ×3 (08:54→20:52)
[2018-11-28] MEDS: Cholecalciferol (D-3) 1,000 UNIT (25MCG) TABLET PO SCH (08:54)
[2018-11-28] MEDS: Lactobacillus 1 EACH CAP.SPRINK PO SCH ×2 (08:54→20:51)
[2018-11-28] MEDS: risperiDONE 0.25 MG TABLET PO SCH (08:55)
[2018-11-28] MEDS: Fenofibrate 54 MG TABLET PO SCH (08:55)
[2018-11-28] MEDS: SUBOXONE 8MG/2MG SL SCH ×2 (09:00→20:56)
[2018-11-28] MEDS ORDERED: Lisinopril 20 MG TABLET PO SCH (09:00)
[2018-11-28] MEDS: Insulin LISPRO 300 UNITS/3 ML VIAL SQ SCH ×3 (09:01→17:05)
[2018-11-28] MEDS: cefTRIAXone 1,000 MG in Water for inj. (sterile) 10 ML IVP SCH (09:19)
[2018-11-28] MEDS: Insulin DETEMIR 100 UNIT/ML X5UNITS SQ SCH ×2 (11:00→20:55)
--- NOTE | 2018-11-28 12:00 | Internal Med History&Physical ---
Date of Encounter: 11/28/18 Time of Encounter: 11:30 Assessment and Plan (1) Acute kidney injury Current visit: Yes Status: Acute BUN and creatinine are significantly increased from 40 to and 1.83 respectively on 09/22/2018 to 71 and 4.67 respectively in emergency room on admission. Suspect due in part to higher dose diuretic use. CT of abdomen will be done to further evaluate. (2) CKD (chronic kidney disease), stage III Current visit: No Status: Chronic As above (3) DM type 2 (diabetes mellitus, type 2) Current visit: No Status: Chronic Hemoglobin A1c was 14.0 on 09/21/2018. Continue basal insulin. Accu-Cheks with SSI will be done. 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 Qualifiers: Hypertension type: essential hypertension Qualified Code(s): I10 - Essential (primary) hypertension Internal Medicine - H&P: HPI Chief complaint: Urinary frequency, malaise, acute on chronic renal failure Admitted From: Emergency Dept Plans for Post Hospital Care: Home History of present illness: Ms. Peraza is a 53 year old female who came to emergency room stating she had 2 day history of diarrhea and reports passing large quantities of nonbloody loose stool. She denies vomiting or significant abdominal pain. She was evaluated in emergency room and was found to have acute on chronic renal failure. She was admitted to [facility] floor for ongoing care needs. She has had "gallbladder problems" in the past but has refused cholecystectomy. She denies disorders of her liver or exocrine pancreas. She has had frequent UTIs in the past. She started OTC Uristat the morning of admission thinking she had UTI symptoms. She has chronic kidney disease stage III but does not follow with a step down nurse. She reports she felt she had increased swelling in her legs approximately 4 weeks ago so contacted her PCP office and was directed to increase Lasix to 40 mg daily. Past Med Surg Social Fam HX - Past Medical History Medical history: arthritis, diabetes, fibromyalgia, GERD, hyperlipidemia, hypertension, migraine, renal disease Additional medical history: Rheumatoid Arthritis Psychiatric history: anxiety, depression, panic disorder, schizophrenia - Past Surgical History Surgical History: other Additional surgical history: Tubal, Heart cath - Social History Smoking Status: Former smoker Smokeless Tobacco Status: No Alcohol use: none Drug use: marijuana - Family History Father Living Status: Hx Family Cancer: Yes Internal Medicine - H&P: Meds FLUoxetine HCl [Prozac] 40 mg PO DAILY 03/19/15 [History] Insulin ASPART [NovoLOG] 110 unit SQ TIDWM 03/19/15 [History] Allopurinol [Zyloprim] 300 mg PO DAILY #30 tablet 03/22/15 [Rx] Atorvastatin [Lipitor] 40 mg PO HS #30 tablet 03/22/15 [Rx] Buprenorphine HCl/Naloxone HCl [Suboxone 8 mg-2 mg Sl Film] 1 film SL BID 04/11/16 [History] Cholecalciferol (Vitd3)/Vit K2 [D3 + K2 Dots 1,000 Units Tab] 2,000 unit PO DAILY 04/11/16 [History] Fenofibrate Nanocrystallized [Tricor] 145 mg PO DAILY 04/11/16 [History] Gabapentin [Neurontin] 600 mg PO TID 04/11/16 [History] Metoprolol [Lopressor] 50 mg PO BID 04/11/16 [History] metFORMIN [Glucophage] 500 mg PO BIDWM 04/11/16 [History] risperiDONE [Risperidone] 0.5 mg PO DAILY 04/11/16 [History] Ferrous Sulfate [Iron] 325 mg PO DAILY #30 tablet 04/14/16 [Rx] Buspirone HCl [Buspar] 10 mg PO BID 06/22/16 [History] Potassium Chloride [Klor-Con] 20 meq PO BID 09/18/16 [History] Fexofenadine HCl [Allergy Relief] 180 mg PO DAILY PRN #0 05/28/17 [Rx] Enalapril Maleate [Vasotec] 10 mg PO DAILY 10/06/17 [History] Furosemide [Lasix] 20 mg PO DAILY 10/06/17 [History] Methocarbamol [Robaxin-750] 750 mg PO Q4H 10/06/17 [History] amLODIPine [Norvasc] 5 mg PO DAILY #30 tablet 10/06/17 [Rx] Aspirin [Lo-Dose Aspirin EC] 81 mg PO DAILY 09/21/18 [History] Etanercept [Enbrel Sureclick] 1 ml SQ QWEEK 09/21/18 [History] Insulin Glargine [Lantus] 65 unit SQ BID 09/21/18 [History] Allergy/AdvReac Type Severity Reaction Status Date / Time amlodipine Allergy Hives Verified 09/21/18 00:54 All Systems PM: A 10-system review of systems was performed and is negative for pertinent findings except as documented above in the HPI. Review of systems: Review of systems from her August 2018 [facility] hospitalization were reviewed and revi sed as below. Gen.: Her weight has decreased from 129.529 kg on 04/14/2016 to 120.23 kg at present. Cardiovascular: She has a history of hypertension but denies NE heart failure angina DVT or pulmonary embolus. Respiratory: She smoked cigarettes only rarely in the past. She has no known chronic lung disease. She does not use supplemental oxygen and has not been tested for sleep apnea. GI: As per history of present illness : As per history of present illness Neurologic: She has migraine headaches and has neuropathy possibly secondary to DM 2. She denies large distribution strokes or seizures. Head CT was done during her August 2018 hospitalization to further evaluate her complaints of ins tability on walking. No acute pathology was seen. MRI of head was then done to further evaluate cerebellum area and showed no significant pathology. Endocrine: She was diagnosed with DM 2 approximately 2009. She has hyperlipidemia but no known thyroid disease. Hematology/oncology: She had anemia on blood work in emergency room March 2016 admission. She has had no internal malignancies documented. Psychiatric: She has diagnoses of depression and schizophrenia but does not follow at the mental health clinic at the present time with her last visit approximately 2013. [place] skeletal: She has chronic low back pain but has refused back surgeries. She has a history of gout. - Constitutional Vitals: Temp Pulse Resp BP Pulse Ox 98.0 F 91 20 90/63 93 11/28/18 11:11 11/28/18 11:11 11/28/18 11:11 11/28/18 11:11 11/28/18 11:11 Exam: Gen.: She is a well-developed overweight female resting comfortably in bed who appears in no acute distress HEENT: Head is atraumatic and normocephalic. Eyes: EOMI. There is no scleral icterus. Mouth: Mucosa is moist. Neck: Supple and nontender. There is no thyromegaly or adenopathy noted. Heart: Regular without murmurs gallops or ectopics Lungs: No wheezes or crackles are heard. Abdomen: Bowel sounds are diminished. The abdomen is nontender to palpation. No masses or guarding are noted. Extremities: There is no cyanosis edema or clubbing noted. Dorsalis pedis and posterior tibial pulses are trace to 1+ palpable bilaterally. Neurologic: Mental status: She is talkative and a good historian. Cranial nerves: Smile is symmetric. Forehead wrinkles bilaterally. Tongue protrudes midline. EOMI. Motor: There is no pronator drift. Cerebellar: Finger to nose is intact bilaterally. Skin: Warm and dry Internal Med - H&P Results - Labs CBC & Chem 7: 11/27/18 15:03 11/28/18 05:54 Labs: Short CBC 11/27/18 Range/Units 15:03 WBC 12.4 H (4.3-11.1) K/mcL Hgb 12.2 (11.5-15.4) g/dL Hct 35.7 (35.3-44.9) % Plt Count 194 (140-400) K/mcL Neutrophils # 7.8 (1.6-8.9) K/mcL BMP 11/27/18 11/28/18 15:03 05:54 Sodium 136 137 Potassium 3.6 3.9 Chloride 97 L 103 Carbon Dioxide 26 22 L BUN 71 H 74 H Creatinine 4.67 H 5.14 H Glucose 206 H 191 H Calcium 9.2 8.1 L Urine 11/27/18 Range/Units 14:54 Urine Color Yellow (Yellow) Urine Clarity Cloudy A (Clear) Urine pH 5.5 (5.0-8.0) pH Units Ur Specific [place] 1.020 (1.010-1.025) Urine Protein 30 H (Neg-Trace) mg/dL Urine Glucose (UA) Normal (Normal) mg/dL
[2018-11-29] MEDS: Methocarbamol 500 MG TABLET PO SCH ×5 (00:18→16:31)
[2018-11-29] MEDS: SUBOXONE 8MG/2MG SL SCH ×2 (07:38→22:00)
[2018-11-29] MEDS: risperiDONE 0.25 MG TABLET PO SCH (07:51)
[2018-11-29] MEDS: Gabapentin 300 MG CAPSULE PO SCH ×3 (07:52→21:59)
[2018-11-29] MEDS: Lactobacillus 1 EACH CAP.SPRINK PO SCH ×2 (07:52→21:59)
[2018-11-29] MEDS: Aspirin Enteric Coated 81 MG Tablet PO SCH (07:52)
[2018-11-29] MEDS: Fenofibrate 54 MG TABLET PO SCH (07:52)
[2018-11-29] MEDS: FLUoxetine 20 MG CAPSULE PO SCH (07:53)
[2018-11-29] MEDS: Cholecalciferol (D-3) 1,000 UNIT (25MCG) TABLET PO SCH (07:53)
[2018-11-29] MEDS: cefTRIAXone 1,000 MG in Water for inj. (sterile) 10 ML IVP SCH (07:53)
[2018-11-29] MEDS: Insulin LISPRO 300 UNITS/3 ML VIAL SQ SCH ×3 (07:54→16:31)
[2018-11-29 08:14] LABS: Basophils % 0.9 %; Eosinophils # 0.1 K/mcL (0.0-0.6); Eosinophils % 2.6 %; Hematocrit 30.4 % (35.3-44.9); Immature Granulocytes % 1.1 % (0-4); Lymphocytes % 49.1 %; Mean Corpuscular HGB Conc 32.9 g/dL (31.6-35.5); Mean Corpuscular Hemoglobin 29.6 pg (28.0-33.3); Mean Corpuscular Volume 89.9 fL (83.0-100.0); Mean Platelet Volume 10.3 fL (9.4-12.4); Monocytes # 0.3 K/mcL (0.0-1.3); Monocytes % 6.1 %; Platelet Count 137 K/mcL (140-400); Red Blood Count 3.38 M/mcL (3.82-4.97); Red Cell Distribution Width 12.9 % (11.5-14.5); Segmented Neutrophils % 40.2 %; White Blood Count 4.6 K/mcL (4.3-11.1)
[2018-11-29 08:26] LABS: Lymphocytes # 2.3 K/mcL (0.6-4.6); Neutrophils # 1.9 K/mcL (1.6-8.9)
[2018-11-29] MEDS: Insulin DETEMIR 100 UNIT/ML X5UNITS SQ SCH ×3 (09:56→22:00)
[2018-11-29 09:58] LABS: Albumin 3.5 g/dL (3.5-5.7); Albumin/Globulin Ratio 1.2 (1.1-2.2); Bilirubin,Total 0.2 mg/dL (0.3-1.0); Calcium 8.4 mg/dL (8.6-10.3); Potassium 4.5 mEq/L (3.5-5.1); Total Protein 6.5 g/dL (6.4-8.9)
--- NOTE | 2018-11-29 11:42 | Internal Med Progress Note ---
Date of Encounter: 11/29/18 Time of Encounter: 11:33 - Assessment and plan (1) Acute kidney injury Current Visit: Yes Status: Acute Assessment and plan: November 29. BUN and creatinine have decreased to 66 and 3.30 respectively with estimated GFR 15. Continue present Rx. Check labs in a.m. (2) CKD (chronic kidney disease), stage III Current Visit: No Status: Chronic Assessment and plan: November 29. As above (3) DM type 2 (diabetes mellitus, type 2) Current Visit: No Status: Chronic Assessment and plan: November 29. Blood sugars above desirable range. Increase Levemir to 75 units twice a day and continue Accu-Cheks with SSI. Qualifiers: Diabetes mellitus residential insulin use: with residential use Diabetes mellitus complication status: with unspecified complications Qualified Code(s): E11.8 - Type 2 diabetes mellitus with unspecified complications; Z79.4 - aco coordinator (current) use of insulin (4) Hypertension Current Visit: Yes Status: Chronic Assessment and plan: November 29. Blood pressure satisfactory. Remain off Norvasc and enalapril Qualifiers: Hypertension type: essential hypertension Qualified Code(s): I10 - Essential (primary) hypertension (5) Mass of right ovary Current Visit: Yes Status: Acute Assessment and plan: November 29. 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 I informed patient and daughter of this finding. Her PCP can refer her for surgical evaluation. - Subjective Interval history: November 29. She has no new complaints and feels better. - Constitutional Vitals: Temp Pulse Resp BP Pulse Ox 97.7 F 76 16 127/83 96 11/29/18 11:28 11/29/18 11:28 11/29/18 11:28 11/29/18 11:28 11/29/18 11:28 Exam: She is resting comfortably in bed and appears in no acute distress. Her affect is overall cheerful. I reviewed her medications, lab results, and CT report Internal Medicine: Result - Labs CBC & Chem 7: 11/29/18 07:21 11/29/18 07:20 Labs: Short CBC 11/29/18 Range/Units 07:21 WBC 4.6 D (4.3-11.1) K/mcL Hgb 10.0 L D (11.5-15.4) g/dL Hct 30.4 L (35.3-44.9) % Plt Count 137 L (140-400) K/mcL Neutrophils # 1.9 (1.6-8.9) K/mcL BMP 11/29/18 07:20 Sodium 135 L Potassium 4.5 Chloride 106 Carbon Dioxide 20 L BUN 66 H Creatinine 3.30 H Glucose 322 H Calcium 8.4 L Liver Function 11/29/18 Range/Units 07:20 Total Bilirubin 0.2 L (0.3-1.0) mg/dL AST 23 (13-39) Units/L ALT 12 (7-52) Units/L Alkaline Phosphatase 58 (34-104) Units/L Albumin 3.5 (3.5-5.7) g/dL - Impressions Impressions Abdomen/Pelvis CT 11/28/18 11:53 IMPRESSION: Fatty infiltration of the liver. Multifocal right renal cortical scarring. No hydronephrosis nor calcified ureteral stones. Evaluation of the renal parenchyma is limited without intravenous contrast. Right adnexal dermoid tumor measuring up to 6.2 cm. See below recommendation. Small amount of lower pericolic gutter and pelvic fluid. Nonvisualization of the appendix. RECOMMENDATIONS: 6.2 cm worrisome for malignancy ovarian cyst. Recommend surgical evaluation. Reference: J Am Beth Radiol 2013;10:[id number] D/ / Norah Velasquez Cha, MD / Norah Velasquez Cha, MD Interpreting Provider: Norah Velasquez Cha, MD Consult Discharge Plan - Plan Referrals: Pablo Colmenares, [Primary Care Provider] - 1 week
[2018-11-29 12:17] LABS: % Iron Saturation 15 % (15-50); Iron 59 mcg/dL (50-170); Transferrin 273 mg/dL (203-362)
[2018-11-29 12:36] LABS: Ferritin 151 ng/mL (10-120)
[2018-11-30] MEDS: Methocarbamol 500 MG TABLET PO SCH ×7 (00:30→20:50)
[2018-11-30 06:07] LABS: Basophils % 0.9 %; Eosinophils # 0.1 K/mcL (0.0-0.6); Eosinophils % 3.1 %; Hematocrit 26.3 % (35.3-44.9); Immature Granulocytes % 1.1 % (0-4); Lymphocytes # 2.6 K/mcL (0.6-4.6); Lymphocytes % 57.3 %; Mean Corpuscular HGB Conc 34.2 g/dL (31.6-35.5); Mean Corpuscular Hemoglobin 29.6 pg (28.0-33.3); Mean Corpuscular Volume 86.5 fL (83.0-100.0); Mean Platelet Volume 10.4 fL (9.4-12.4); Monocytes # 0.3 K/mcL (0.0-1.3); Monocytes % 7.5 %; Neutrophils # 1.4 K/mcL (1.6-8.9); Platelet Count 133 K/mcL (140-400); Red Blood Count 3.04 M/mcL (3.82-4.97); Segmented Neutrophils % 30.1 %; White Blood Count 4.5 K/mcL (4.3-11.1)
[2018-11-30 06:43] LABS: Calcium 8.6 mg/dL (8.6-10.3); Potassium 3.9 mEq/L (3.5-5.1)
[2018-11-30] MEDS: Insulin LISPRO 300 UNITS/3 ML VIAL SQ SCH ×3 (07:55→16:07)
[2018-11-30] MEDS: Lactobacillus 1 EACH CAP.SPRINK PO SCH ×2 (07:59→20:44)
[2018-11-30] MEDS: Gabapentin 300 MG CAPSULE PO SCH ×3 (07:59→20:44)
[2018-11-30] MEDS: Aspirin Enteric Coated 81 MG Tablet PO SCH (08:00)
[2018-11-30] MEDS: Fenofibrate 54 MG TABLET PO SCH (08:01)
[2018-11-30] MEDS: Cholecalciferol (D-3) 1,000 UNIT (25MCG) TABLET PO SCH (08:01)
[2018-11-30] MEDS: FLUoxetine 20 MG CAPSULE PO SCH (08:01)
[2018-11-30] MEDS: SUBOXONE 8MG/2MG SL SCH ×2 (08:01→20:45)
[2018-11-30] MEDS: risperiDONE 0.25 MG TABLET PO SCH (08:02)
[2018-11-30] MEDS: cefTRIAXone 1,000 MG in Water for inj. (sterile) 10 ML IVP SCH (08:02)
[2018-11-30] MEDS: Insulin DETEMIR 100 UNIT/ML X5UNITS SQ SCH ×2 (08:16→20:45)
[2018-11-30 09:13] LABS: Folate 8.5 ng/mL (3.0-16.0)
--- NOTE | 2018-11-30 12:45 | Internal Med Progress Note ---
Date of Encounter: 11/30/18 Time of Encounter: 12:38 - Assessment and plan (1) Acute kidney injury Current Visit: Yes Status: Acute Assessment and plan: November 29. BUN and creatinine have decreased to 66 and 3.30 respectively with estimated GFR 15. Continue present Rx. Check labs in a.m. November 30. Further improvement with creatinine decreased to 2.23. Continue IV fluids. Anticipate discharge home tomorrow if stable. (2) CKD (chronic kidney disease), stage III Current Visit: No Status: Chronic Assessment and plan: November 29. As above (3) DM type 2 (diabetes mellitus, type 2) Current Visit: No Status: Chronic Assessment and plan: November 29. Blood sugars above desirable range. Increase Levemir to 75 units twice a day and continue Accu-Cheks with SSI. Qualifiers: Diabetes mellitus nurse practitioner per diem insulin use: with nurse practitioner per diem use Diabetes mellitus complication status: with unspecified complications Qualified Code(s): E11.8 - Type 2 diabetes mellitus with unspecified complications; Z79.4 - [facility]FP (current) use of insulin (4) Hypertension Current Visit: Yes Status: Chronic Assessment and plan: November 29. Blood pressure satisfactory. Remain off Norvasc and enalapril Qualifiers: Hypertension type: essential hypertension Qualified Code(s): I10 - Essential (primary) hypertension (5) Mass of right ovary Current Visit: Yes Status: Acute Assessment and plan: November 29. 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 I informed patient and daughter of this finding. Her PCP can refer her for surgical evaluation. - Subjective Interval history: November 29. She has no new complaints and feels better. November 30. She has no new complaints. - Constitutional Vitals: Temp Pulse Resp BP Pulse Ox 97.5 F L 74 18 131/86 98 11/30/18 06:35 11/30/18 06:35 11/30/18 06:35 11/30/18 06:35 11/30/18 06:35 Exam: She is resting comfortably in bed and appears in no acute distress. Her affect is bright and cheerful. I reviewed her medications and lab results. Internal Medicine: Result - Labs CBC & Chem 7: 11/30/18 04:25 11/30/18 04:25 Labs: Short CBC 11/30/18 Range/Units 04:25 WBC 4.5 (4.3-11.1) K/mcL Hgb 9.0 L (11.5-15.4) g/dL Hct 26.3 L (35.3-44.9) % Plt Count 133 L (140-400) K/mcL Neutrophils # 1.4 L (1.6-8.9) K/mcL BMP 11/30/18 04:25 Sodium 141 Potassium 3.9 Chloride 108 H Carbon Dioxide 25 BUN 51 H Creatinine 2.23 H Glucose 173 H Calcium 8.6 Consult Discharge Plan - Plan Referrals: Pablo Colmenares, [Primary Care Provider] - 1 week
[2018-12-01] MEDS: Methocarbamol 500 MG TABLET PO SCH ×4 (00:31→11:50)
[2018-12-01 06:48] VITALS: BP 133/87
[2018-12-01] MEDS: SUBOXONE 8MG/2MG SL SCH (07:47)
[2018-12-01] MEDS: Gabapentin 300 MG CAPSULE PO SCH (08:12)
[2018-12-01] MEDS: Fenofibrate 54 MG TABLET PO SCH (08:13)
[2018-12-01] MEDS: Lactobacillus 1 EACH CAP.SPRINK PO SCH (08:13)
[2018-12-01] MEDS: FLUoxetine 20 MG CAPSULE PO SCH (08:13)
[2018-12-01] MEDS: Aspirin Enteric Coated 81 MG Tablet PO SCH (08:13)
[2018-12-01] MEDS: Insulin DETEMIR 100 UNIT/ML X5UNITS SQ SCH (08:13)
[2018-12-01] MEDS: Cholecalciferol (D-3) 1,000 UNIT (25MCG) TABLET PO SCH (08:13)
[2018-12-01] MEDS: risperiDONE 0.25 MG TABLET PO SCH (08:13)
[2018-12-01] MEDS: cefTRIAXone 1,000 MG in Water for inj. (sterile) 10 ML IVP SCH (08:14)
[2018-12-01] MEDS: Insulin LISPRO 300 UNITS/3 ML VIAL SQ SCH ×2 (08:14→11:49)
[2018-12-01 10:34] LABS: Basophils # 0.1 K/mcL (0.0-0.2); Basophils % 0.9 %; Eosinophils # 0.1 K/mcL (0.0-0.6); Eosinophils % 2.3 %; Hematocrit 28.4 % (35.3-44.9); Hemoglobin 9.8 g/dL (11.5-15.4); Immature Granulocytes % 3.8 % (0-4); Lymphocytes # 1.7 K/mcL (0.6-4.6); Mean Corpuscular HGB Conc 34.5 g/dL (31.6-35.5); Mean Corpuscular Hemoglobin 29.3 pg (28.0-33.3); Mean Platelet Volume 9.7 fL (9.4-12.4); Monocytes # 0.3 K/mcL (0.0-1.3); Neutrophils # 2.9 K/mcL (1.6-8.9); Nucleated Red Blood Cells 0.4 /100 WBC (0); Platelet Count 149 K/mcL (140-400); Red Blood Count 3.34 M/mcL (3.82-4.97); Red Cell Distribution Width 12.9 % (11.5-14.5); White Blood Count 5.3 K/mcL (4.3-11.1)
[2018-12-01 11:03] LABS: Potassium 4.4 mEq/L (3.5-5.1)
[2018-12-01 11:04] LABS: Calcium 8.9 mg/dL (8.6-10.3)
--- NOTE | 2018-12-01 11:21 | Discharge Summary ---
Orders not resulted at time of discharge: Pending orders 11/27/18 22:16 Culture,Blood [BC] Stat Date of Encounter: 12/01/18 Time of Encounter: 11:12 - Discharge Diagnosis (1) Acute kidney injury Priority: Primary Status: Acute (2) CKD (chronic kidney disease), stage III Priority: Secondary Status: Chronic (3) DM type 2 (diabetes mellitus, type 2) Priority: Secondary Status: Chronic Qualifiers: Diabetes mellitus assisted insulin use: with termite control servicer use Diabetes mellitus complication status: with unspecified complications Qualified Code(s): E11.8 - Type 2 diabetes mellitus with unspecified complications; 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 Peraza is a 53 year old female who came to emergency room stating she had 2 day history of diarrhea and reports passing large quantities of nonbloody loose stool. She denies vomiting or significant abdominal pain. She was evaluated in emergency room and was found to have acute on chronic renal failure. She was admitted to [facility] floor for ongoing care needs. Initial orders were written by the emergency room physician. I saw her on November 28 and performed a history and physical. She was started on IV fluids. She did not have diarrhea during her hospital stay. Lasix, Norvasc and enalapril were held because of hypotension and acute on chronic renal failure. Her blood pressure returned to satisfactory range. BUN and creatinine improved to 36 and 1.68 respectively by day of discharge with estimated GFR 32. She will remain off Norvasc, enalapril, potassium and Lasix at discharge. Her PCP can monitor her blood pressure. Anemia testing showed iron 59, transferrin saturation 15%, transferrin 273, ferritin 151, B12 863, and folate 8.5. Hemoglobin was stable at 9.8 on day of discharge. CT of abdomen/pelvis was done to further evaluate acute on chronic renal failure. No hydronephrosis or other acute renal pathology was seen. There was a right ovarian tumor measuring 5.0 x 4.2 x 6.2 cm worrisome for malignancy. I discussed this finding with the patient and her daughter. Her PCP can refer her for additional evaluation/treatment. Basal Levemir was continued and Accu-Cheks with SSI were done. Blood sugar showed generally satisfactory control. I told her she should withhold scheduled NovoLog 110 units ac at home for now and closely follow a diabetic diet. I explained she will likely need some insulin coverage ac but her dose can probably be significantly lower than at present if diet adherence is done. She will follow with her PCP Dr. Colmenares within 1 week. - Time Spent with Patient Total time spent providing and/or coordinating discharge services: - Discharge Medications Prescriptions: Continued Methocarbamol [Robaxin-750] 750 mg PO Q4H FLUoxetine HCl [Prozac] 40 mg PO DAILY Atorvastatin [Lipitor] 40 mg PO HS #30 tablet Allopurinol [Zyloprim] 300 mg PO DAILY #30 tablet Fenofibrate Nanocrystallized [Tricor] 145 mg PO DAILY Cholecalciferol (Vitd3)/Vit K2 [D3 + K2 Dots 1,000 Units Tab] 2,000 unit PO DAILY Metoprolol [Lopressor] 50 mg PO BID metFORMIN [Glucophage] 500 mg PO BIDWM risperiDONE [Risperidone] 0.5 mg PO DAILY Gabapentin [Neurontin] 600 mg PO TID Buprenorphine HCl/Naloxone HCl [Suboxone 8 mg-2 mg Sl Film] 1 film SL BID Ferrous Sulfate [Iron] 325 mg PO DAILY #30 tablet Buspirone HCl [Buspar] 10 mg PO BID Fexofenadine HCl [Allergy Relief] 180 mg PO DAILY PRN #0 PRN Reason: Allergy Symptoms Etanercept [Enbrel Sureclick] 1 ml SQ QWEEK Insulin Glargine [Lantus] 65 unit SQ BID Discontinued Potassium Chloride [Klor-Con] 20 meq PO BID Furosemide [Lasix] 20 mg PO DAILY Enalapril Maleate [Vasotec] 10 mg PO DAILY amLODIPine [Norvasc] 5 mg PO DAILY #30 tablet Insulin ASPART [NovoLOG] 110 unit SQ TIDWM Aspirin [Lo-Dose Aspirin EC] 81 mg PO DAILY Home Medications: FLUoxetine HCl [Prozac] 40 mg PO DAILY 03/19/15 [History] Allopurinol [Zyloprim] 300 mg PO DAILY #30 tablet 03/22/15 [Rx] Atorvastatin [Lipitor] 40 mg PO HS #30 tablet 03/22/15 [Rx] Buprenorphine HCl/Naloxone HCl [Suboxone 8 mg-2 mg Sl Film] 1 film SL BID 04/11/16 [History] Cholecalciferol (Vitd3)/Vit K2 [D3 + K2 Dots 1,000 Units Tab] 2,000 unit PO DAILY 04/11/16 [History] Fenofibrate Nanocrystallized [Tricor] 145 mg PO DAILY 04/11/16 [History] Gabapentin [Neurontin] 600 mg PO TID 04/11/16 [History] Metoprolol [Lopressor] 50 mg PO BID 04/11/16 [History] metFORMIN [Glucophage] 500 mg PO BIDWM 04/11/16 [History] risperiDONE [Risperidone] 0.5 mg PO DAILY 04/11/16 [History] Ferrous Sulfate [Iron] 325 mg PO DAILY #30 tablet 04/14/16 [Rx] Buspirone HCl [Buspar] 10 mg PO BID 06/22/16 [History] Fexofenadine HCl [Allergy Relief] 180 mg PO DAILY PRN #0 05/28/17 [Rx] Methocarbamol [Robaxin-750] 750 mg PO Q4H 10/06/17 [History] Etanercept [Enbrel Sureclick] 1 ml SQ QWEEK 09/21/18 [History] Insulin Glargine [Lantus] 65 unit SQ BID 09/21/18 [History] Allergies/Adverse Reactions: Allergy/AdvReac Type Severity Reaction Status Date / Time amlodipine Allergy Hives Verified 09/21/18 00:54 Date of admission: 11/28/18 15:36 Primary care physician: Pablo Colmenares DO - Constitutional Vitals: Temp Pulse Resp BP Pulse Ox 97.5 F L 75 16 133/87 94 12/01/18 06:45 12/01/18 06:45 12/01/18 06:45 12/01/18 06:45 12/01/18 06:45 - Patient Status Disposition: Home, Self-Care Condition: Fair - Discharge Instructions Instructions: Diabetes Mellitus Type 2 in Adults (DC), Chronic Hypertension (DC) Follow Up With: Pablo Colmenares DO [Primary Care Provider] - 1 week (12/08/18 9:30 am Tang Pena CNP ) - Diet and Activity Activity: resume usual activities as tolerated Diet: diabetic diet
== END 2018-12-01 12:16 | disposition home or self-care (01) | DRG 469 ==
LOC: EMEROOPIK 14:33 → INPPIK 14:33
PROVIDERS: ADMIT Internal Medicine; ATTEND Internal Medicine

== ENCOUNTER 2019-04-27 14:44 | Inpatient (IN) ==
[2019-04-27] MEDS ORDERED: Ketorolac 30 MG/ML VIAL IVP ONE (14:53)
[2019-04-27] MEDS ORDERED: Ondansetron 4 MG/2 ML VIAL IVP ONE (14:53)
[2019-04-27] MEDS ORDERED: *HR* FentaNYL (PF) 100 MCG/2 ML VIAL IVP ONE (14:53)
[2019-04-27] MEDS ORDERED: 0.9 % Sodium Chloride 1,000 ML IVC ONE ×2 (14:53→15:43)
[2019-04-27 15:10] LABS: Bilirubin,Urine Negative (Negative); Blood,Urine Moderate (Negative); Clarity,Urine Clear (Clear); Glucose,Urine (UA) >=1000 mg/dL (Normal); Ketones,Urine 40 mg/dL (Negative); Leukocyte Esterase,Urine Negative (Negative); Nitrite,Urine Negative (Negative); Protein,Urine 30 mg/dL (Neg-Trace); Specific Gravity,Urine 1.015 (1.010-1.025); Urobilinogen,Urine Normal (Normal)
[2019-04-27 15:14] LABS: Color,Urine Light Yellow (Yellow)
[2019-04-27 15:15] LABS: Basophils # 0.1 K/mcL (0.0-0.2); Basophils % 0.5 %; Eosinophils # 0.1 K/mcL (0.0-0.6); Eosinophils % 0.9 %; Hematocrit 36.3 % (35.3-44.9); Hemoglobin 13.2 g/dL (11.5-15.4); Lymphocytes # 1.2 K/mcL (0.6-4.6); Lymphocytes % 12.7 %; Mean Corpuscular HGB Conc 36.4 g/dL (31.6-35.5); Mean Corpuscular Hemoglobin 30.1 pg (28.0-33.3); Mean Corpuscular Volume 82.7 fL (83.0-100.0); Mean Platelet Volume 9.8 fL (9.4-12.4); Monocytes # 0.5 K/mcL (0.0-1.3); Monocytes % 5.2 %; Neutrophils # 7.4 K/mcL (1.6-8.9); Platelet Count 181 K/mcL (140-400); Red Blood Count 4.39 M/mcL (3.82-4.97); Red Cell Distribution Width 12.8 % (11.5-14.5); Segmented Neutrophils % 79.7 %; White Blood Count 9.3 K/mcL (4.3-11.1)
[2019-04-27 15:20] LABS: Prothrombin Time 11.4 Seconds (9.4-12.1); Squamous Epithelial Cell,Urine Few per lpf (None-Few); WBC,Urine 15-30 per hpf (0-3)
[2019-04-27 15:21] LABS: Bacteria,Urine Few per hpf (None-Few)
[2019-04-27 15:23] LABS: Activated Partial Thrombo Time 29.6 Seconds (26.0-36.0)
[2019-04-27 15:32] LABS: Troponin I < 0.03 ng/mL (< 0.04)
[2019-04-27 15:35] LABS: Alanine Aminotransferase 21 Units/L (7-52); Albumin 4.2 g/dL (3.5-5.7); Albumin/Globulin Ratio 1.1 (1.1-2.2); Alkaline Phosphatase 97 Units/L (34-104); Aspartate Amino Transferase 15 Units/L (13-39); BUN/Creatinine Ratio 17 (6-26); Bilirubin,Direct 0.1 mg/dL (0.0-0.2); Bilirubin,Indirect 0.5 mg/dL (0.0-1.0); Bilirubin,Total 0.6 mg/dL (0.3-1.0); Blood Urea Nitrogen 24 mg/dL (6-20); Calcium 10.3 mg/dL (8.6-10.3); Carbon Dioxide 25 mEq/L (23-29); Chloride 87 mEq/L (98-107); Globulin 3.7 g/dL (2.4-3.5); Glucose 551 mg/dL (70-105); Osmolality,Calculated 299 (280-300); Potassium 3.2 mEq/L (3.5-5.1); Sodium 130 mEq/L (136-145); Total Protein 7.9 g/dL (6.4-8.9); eGFR For African Americans 46 (> 60); eGFR For Non-African Americans 38 (> 60)
[2019-04-27] MEDS ORDERED: Insulin Regular, Human 100 UNIT/ML SQ ONE ×2 (15:42→19:21)
[2019-04-27 15:44] LABS: Lipase > 1800 Units/L (11-82)
[2019-04-27 16:00] LABS: VBG HCO3 25 mEq/L (21-27); VBG PCO2 40 mmHg (41-51); VBG PH 7.41 pH Units (7.32-7.42); VBG PO2 40 mmHg (25-50)
[2019-04-27 19:21] LABS: Calcium 9.1 mg/dL (8.6-10.3); Potassium 3.3 mEq/L (3.5-5.1)
[2019-04-27] MEDS ORDERED: Dextrose Gel 15 GM/37.5 ML TUBE PO PRN ×2 (20:38)
[2019-04-27] MEDS ORDERED: *HR* Dextrose 50 % in Water (Syg) 50 ML SYRINGE IVP PRN (20:38)
[2019-04-27] MEDS ORDERED: Naloxone 0.4 MG/ML INJ IVP PRN (20:38)
[2019-04-27] MEDS ORDERED: D5% in Water 1,000 ML IVC PRN (20:38)
[2019-04-27] MEDS ORDERED: Insulin DETEMIR 100 UNIT/ML X5UNITS SQ SCH (21:00)
[2019-04-27] MEDS ORDERED: Insulin LISPRO 300 UNITS/3 ML VIAL SQ ONE (21:52)
[2019-04-27] MEDS ORDERED: Insulin DETEMIR 100 UNIT/ML per UNIT SQ ONE (22:00)
[2019-04-27] MEDS: 0.9 % Sodium Chloride 1,000 ML IVC SCH (22:08)
[2019-04-27] MEDS: Ondansetron 4 MG/2 ML VIAL IVP PRN (22:13)
[2019-04-27] MEDS: Gabapentin 300 MG CAPSULE PO SCH (22:23)
[2019-04-27] MEDS: *HR* OxyCODONE Immed Rel 5 MG TABLET PO PRN (22:30)
[2019-04-28] MEDS: Insulin LISPRO 300 UNITS/3 ML VIAL SQ SCH ×5 (00:27→20:03)
[2019-04-28] MEDS: *HR* OxyCODONE Immed Rel 5 MG TABLET PO PRN ×2 (03:17→19:59)
[2019-04-28] MEDS: 0.9 % Sodium Chloride 1,000 ML IVC SCH (03:18)
[2019-04-28] MEDS: Ondansetron 4 MG/2 ML VIAL IVP PRN (06:16)
[2019-04-28 07:50] LABS: Calcium 8.7 mg/dL (8.6-10.3); Potassium 2.7 mEq/L (3.5-5.1)
[2019-04-28] MEDS ORDERED: *HR* Dextrose 50 % in Water (Vial) 50 ML VIAL IVP PRN (08:26)
[2019-04-28] MEDS ORDERED: Fenofibrate 54 MG TABLET PO SCH (09:00)
[2019-04-28] MEDS ORDERED: Insulin DETEMIR 100 UNIT/ML X5UNITS SQ SCH (09:00)
[2019-04-28] MEDS: risperiDONE 0.25 MG TABLET PO SCH (10:06)
[2019-04-28] MEDS: FLUoxetine 20 MG CAPSULE PO SCH (10:07)
[2019-04-28] MEDS: Gabapentin 300 MG CAPSULE PO SCH ×3 (10:07→19:59)
[2019-04-28] MEDS: *HR* Metformin 500 MG TABLET PO SCH ×2 (10:08→16:24)
[2019-04-28] MEDS ORDERED: 0.9 % Sodium Chloride 1,000 ML IVC ONE (15:38)
[2019-04-28 15:49] LABS: Magnesium 1.4 mg/dL (1.6-2.6); Phosphorous 1.9 mg/dL (2.7-4.5)
[2019-04-28] MEDS: Insulin DETEMIR 100 UNIT/ML X5UNITS SQ SCH (20:02)
[2019-04-29] MEDS: *HR* OxyCODONE Immed Rel 5 MG TABLET PO PRN ×2 (00:17→07:53)
[2019-04-29] MEDS ORDERED: *HR* Enoxaparin 40 MG/0.4 ML SYRINGE SQ SCH (06:00)
[2019-04-29 06:48] VITALS: BP 147/84
[2019-04-29 07:05] LABS: Chol/HDL Ratio 6.1 (0-4.9); Cholesterol 178 mg/dL (< 200); HDL Cholesterol 29 mg/dL (40-59); Lipase 802 Units/L (11-82); Triglycerides 593 mg/dL (< 150); Uric Acid 6.2 mg/dL (2.3-7.6)
[2019-04-29 07:06] LABS: Calcium 8.6 mg/dL (8.6-10.3); Potassium 3.4 mEq/L (3.5-5.1)
[2019-04-29] MEDS: FLUoxetine 20 MG CAPSULE PO SCH (07:53)
[2019-04-29] MEDS: risperiDONE 0.25 MG TABLET PO SCH (07:53)
[2019-04-29] MEDS: Insulin DETEMIR 100 UNIT/ML X5UNITS SQ SCH (07:54)
[2019-04-29] MEDS: Gabapentin 300 MG CAPSULE PO SCH (07:54)
[2019-04-29] MEDS: *HR* Metformin 500 MG TABLET PO SCH (07:54)
[2019-04-29] MEDS: Insulin LISPRO 300 UNITS/3 ML VIAL SQ SCH (07:55)
[2019-04-29] MEDS ORDERED: Fenofibrate 54 MG TABLET PO SCH (09:00)
[2019-04-29 09:03] LABS: Estimated Average Glucose 212 mg/dl
[2019-04-29 09:23] LABS: % Iron Saturation 11 % (15-50); Ferritin 218 ng/mL (10-120); Iron 31 mcg/dL (50-170); Transferrin 209 mg/dL (203-362)
== END 2019-04-29 10:50 | disposition home or self-care (01) | DRG 282 ==
LOC: INPPIK 14:44 → EMEROOPIK 14:44 → INPPIK 21:00
PROVIDERS: ADMIT Internal Medicine; ATTEND Internal Medicine

== ENCOUNTER 2020-02-25 20:00 | Observation (INO) ==
[2020-02-25] MEDS ORDERED: Insulin Regular, Human 100 UNIT/ML SQ ONE ×2 (20:38→21:50)
[2020-02-25] MEDS: 0.9 % Sodium Chloride 1,000 ML IVC SCH ×3 (20:48→23:04)
[2020-02-25 20:50] LABS: VBG HCO3 29 mEq/L (21-27); VBG PCO2 50 mmHg (41-51); VBG PH 7.38 pH Units (7.32-7.42); VBG PO2 54 mmHg (25-50)
[2020-02-25 21:08] LABS: BUN/Creatinine Ratio 13 (6-26); Blood Urea Nitrogen 20 mg/dL (6-20); Carbon Dioxide 28 mEq/L (23-29); Chloride 89 mEq/L (98-107); Glucose 724 mg/dL (70-105); Osmolality,Calculated 301 (280-300); Sodium 127 mEq/L (136-145); eGFR For African Americans 42 (> 60); eGFR For Non-African Americans 35 (> 60)
[2020-02-25 21:10] LABS: Troponin I < 0.03 ng/mL (< 0.04)
[2020-02-25 21:19] LABS: Bilirubin,Urine Negative (Negative); Blood,Urine Negative (Negative); Clarity,Urine Clear (Clear); Glucose,Urine (UA) >=1000 mg/dL (Normal); Ketones,Urine Negative (Negative); Leukocyte Esterase,Urine Negative (Negative); Nitrite,Urine Negative (Negative); Protein,Urine Negative (Neg-Trace); Specific Gravity,Urine 1.015 (1.010-1.025); Urobilinogen,Urine Normal (Normal)
[2020-02-25 21:21] LABS: Color,Urine Light Yellow (Yellow)
[2020-02-25 21:40] LABS: Bacteria,Urine Few per hpf (None-Few); RBC,Urine 0-3 per hpf (0-3); Squamous Epithelial Cell,Urine Few per hpf (None-Few); WBC,Urine 0-3 per hpf (0-3)
[2020-02-25] MEDS ORDERED: 0.9 % Sodium Chloride 1,000 ML IVC SCH ×2 (22:00→22:14)
[2020-02-25] MEDS ORDERED: Potassium Chloride Elixir 20 MEQ/15 ML UDC PO ONE ×2 (22:06→22:14)
[2020-02-25] MEDS ORDERED: traZODone 50 MG TABLET PO PRN (22:14)
[2020-02-25] MEDS ORDERED: Insulin Regular, Human 100 UNIT/ML SQ PRN (22:14)
[2020-02-25] MEDS ORDERED: Mag Hydrox/Al Hydrox/Simeth 30 ML UDC PO PRN (22:14)
[2020-02-25] MEDS ORDERED: Dextrose Gel 15 GM/37.5 ML TUBE PO PRN ×2 (22:14)
[2020-02-25] MEDS ORDERED: MOM Conc 10 ML UD.LIQ PO PRN (22:14)
[2020-02-25] MEDS ORDERED: *HR* Promethazine 25 MG/ML VIAL IVP PRN (22:14)
[2020-02-25] MEDS ORDERED: Ondansetron ODT 4 MG TAB.RAPDIS SL PRN (22:14)
[2020-02-25] MEDS ORDERED: Fluticasone Propionate Nasal 50 MCG/SPRAY BOTTLE NS PRN (22:14)
[2020-02-25] MEDS ORDERED: Naloxone 0.4 MG/ML INJ IVP PRN (22:14)
[2020-02-25] MEDS ORDERED: *HR* Dextrose 50 % in Water (Vial) 50 ML VIAL IVP PRN (22:14)
[2020-02-25] MEDS ORDERED: methocarbamoL 500 MG TABLET PO PRN (22:14)
[2020-02-25] MEDS ORDERED: D5% in Water 1,000 ML IVC PRN (22:14)
[2020-02-26] MEDS: 0.9 % Sodium Chloride 1,000 ML IVC SCH ×4 (03:03→22:04)
[2020-02-26 08:17] LABS: BUN/Creatinine Ratio 17 (6-26); Blood Urea Nitrogen 19 mg/dL (6-20); Calcium 8.3 mg/dL (8.6-10.3); Carbon Dioxide 27 mEq/L (23-29); Chloride 100 mEq/L (98-107); Glucose 422 mg/dL (70-105); Osmolality,Calculated 298 (280-300); Potassium 3.9 mEq/L (3.5-5.1); Sodium 134 mEq/L (136-145); eGFR For African Americans > 60 (> 60); eGFR For Non-African Americans 52 (> 60)
[2020-02-26] MEDS ORDERED: Ondansetron 4 MG/2 ML VIAL IVP PRN (08:23)
[2020-02-26] MEDS: FORMOTEROL FUM IH SCH ×2 (09:34→21:48)
[2020-02-26] MEDS: GLYCOPYRROLATE IH SCH ×2 (09:34→21:48)
[2020-02-26] MEDS: cefTRIAXone 1,000 MG in 0.9 % Sodium Chloride Mini Bag 100 ML IVPB SCH (09:46)
[2020-02-26] MEDS: Insulin LISPRO 300 UNITS/3 ML VIAL SQ SCH ×6 (09:53→16:44)
[2020-02-26] MEDS: Insulin DETEMIR 100 UNIT/ML X5UNITS SQ SCH ×2 (09:55→21:47)
[2020-02-26] MEDS: Cholecalciferol (D-3) 1,000 UNIT (25MCG) TABLET PO SCH (09:58)
[2020-02-26] MEDS: gemfibroziL 600 MG TABLET PO SCH ×2 (09:58→21:51)
[2020-02-26] MEDS: risperiDONE 1 MG TABLET PO SCH ×2 (09:58→21:50)
[2020-02-26] MEDS: Gabapentin 400 MG CAPSULE PO SCH ×3 (09:58→21:48)
[2020-02-26] MEDS: BUPRENORPHINE HCL SL SCH ×2 (09:59→21:48)
[2020-02-26] MEDS: FLUoxetine 20 MG CAPSULE PO SCH (09:59)
[2020-02-26] MEDS: NALOXONE HCL SL SCH ×2 (09:59→21:48)
[2020-02-26] MEDS: Loratadine 10 MG TABLET PO SCH (09:59)
[2020-02-26] MEDS: (Liraglutide [Victoza 2-Pak] 1.8 MG) SQ SCH (10:00)
[2020-02-26] MEDS ORDERED: Insulin DETEMIR 100 UNIT/ML per UNIT SQ SCH (21:00)
[2020-02-26] MEDS ORDERED: Insulin LISPRO 300 UNITS/3 ML VIAL SQ SCH (21:00)
[2020-02-26] MEDS ORDERED: Acetaminophen/Butalbital/CaffeineTABLET PO ONE (22:13)
[2020-02-27] MEDS: cefTRIAXone 1,000 MG in 0.9 % Sodium Chloride Mini Bag 100 ML IVPB SCH (08:20)
[2020-02-27] MEDS: FLUoxetine 20 MG CAPSULE PO SCH (08:21)
[2020-02-27] MEDS: Loratadine 10 MG TABLET PO SCH (08:22)
[2020-02-27] MEDS: lisinopriL 20 MG TABLET PO SCH ×2 (08:22→10:04)
[2020-02-27] MEDS: risperiDONE 1 MG TABLET PO SCH (08:22)
[2020-02-27] MEDS: Gabapentin 400 MG CAPSULE PO SCH ×2 (08:22→14:44)
[2020-02-27] MEDS: gemfibroziL 600 MG TABLET PO SCH (08:23)
[2020-02-27] MEDS: BUPRENORPHINE HCL SL SCH (08:23)
[2020-02-27] MEDS: NALOXONE HCL SL SCH (08:23)
[2020-02-27] MEDS: Cholecalciferol (D-3) 1,000 UNIT (25MCG) TABLET PO SCH (08:23)
[2020-02-27] MEDS: Insulin LISPRO 300 UNITS/3 ML VIAL SQ SCH ×4 (08:23→12:46)
[2020-02-27] MEDS: (Liraglutide [Victoza 2-Pak] 1.8 MG) SQ SCH (08:24)
[2020-02-27 08:34] LABS: Basophils % 0.7 %; Eosinophils # 0.2 K/mcL (0.0-0.6); Eosinophils % 3.5 %; Hematocrit 36.7 % (35.3-44.9); Immature Granulocytes % 0.7 % (0-4); Lymphocytes # 2.5 K/mcL (0.6-4.6); Lymphocytes % 44.7 %; Mean Corpuscular HGB Conc 32.7 g/dL (31.6-35.5); Mean Corpuscular Hemoglobin 29.3 pg (28.0-33.3); Mean Corpuscular Volume 89.7 fL (83.0-100.0); Mean Platelet Volume 10.4 fL (9.4-12.4); Monocytes # 0.4 K/mcL (0.0-1.3); Monocytes % 6.5 %; Neutrophils # 2.5 K/mcL (1.6-8.9); Platelet Count 137 K/mcL (140-400); Red Blood Count 4.09 M/mcL (3.82-4.97); Red Cell Distribution Width 13.2 % (11.5-14.5); Segmented Neutrophils % 43.9 %; White Blood Count 5.7 K/mcL (4.3-11.1)
[2020-02-27 08:47] LABS: BUN/Creatinine Ratio 15 (6-26); Blood Urea Nitrogen 17 mg/dL (6-20); Calcium 8.6 mg/dL (8.6-10.3); Carbon Dioxide 22 mEq/L (23-29); Chloride 105 mEq/L (98-107); Glucose 291 mg/dL (70-105); Osmolality,Calculated 294 (280-300); Potassium 4.7 mEq/L (3.5-5.1); Sodium 136 mEq/L (136-145); eGFR For African Americans > 60 (> 60); eGFR For Non-African Americans 50 (> 60)
[2020-02-27] MEDS ORDERED: Metoprolol 100 MG TABLET PO SCH (09:00)
[2020-02-27] MEDS ORDERED: Insulin DETEMIR 100 UNIT/ML X5UNITS SQ SCH (09:00)
[2020-02-27] MEDS: GLYCOPYRROLATE IH SCH (09:53)
[2020-02-27] MEDS: FORMOTEROL FUM IH SCH (09:53)
[2020-02-27] MEDS: hydrALAZINE 25 MG TABLET PO SCH ×2 (11:36→14:44)
[2020-02-27 14:52] LABS: Estimated Average Glucose 344 mg/dl
[2020-02-27 15:41] VITALS: BP 174/96
[2020-02-28] MEDS ORDERED: lisinopriL 20 MG TABLET PO SCH (09:00)
== END 2020-02-27 16:46 | disposition home or self-care (01) ==
LOC: EMEROOPIK 20:00 → INPPIK 20:00
PROVIDERS: ADMIT Family Medicine; ATTEND Family Medicine